=== PATIENT | male | born 1960 | race African-American/Black ===

== ENCOUNTER 2017-10-24 12:10 | Emergency (ER) | payer OTHER ==
[2017-10-24] MEDS ORDERED: CYCLOBENZAPRINE 10 MG TAB ONE (13:39)
[2017-10-24] MEDS ORDERED: HYDROCODONE/APAP 7.5/325 MG TAB ONE (13:40)
--- NOTE | 2017-10-24 14:37 | RAD REPORT ---
EXAM DESCRIPTION: CT - Thorax Wo Con - 10/24/2017 2:17 pm CLINICAL HISTORY: Chest pain status post fall several days ago. Right rib pain COMPARISON: 2013 TECHNIQUE: Computed axial tomography of the chest was obtained. Contrast was not requested. All CT scans are performed using dose optimization technique as appropriate and may include automated exposure control or mA/KV adjustment according to patient size. FINDINGS: The evaluation of mediastinum, nelson and vessels is limited secondary to lack of IV contras t administration. A pulmonary contusion is not seen. A mediastinal hematoma is not seen. A pleural effusion is not present. A pericardia leffusion is not noted A displaced rib fracture is not noted. 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
--- NOTE | 2017-10-24 14:55 | RAD REPORT ---
EXAM DESCRIPTION: CT - Abdomen Wo Contrast - 10/24/2017 2:17 pm CLINICAL HISTORY: Abdominal pain status post fall COMPARISON: 2014 TECHNIQUE: Computed axial tomography from the diaphragm to the iliac crest was obtained. Oral contra st was given. IV contrast was not requested. All CT scans are performed using dose optimization technique as appropriate and may include automated exposure control or mA/KV adjustment according to patient size. FINDINGS: The evaluation of solid organs and vessels is limited secondary to the lack of IV contrast administration. The liver, spleen, adrenals, pancreas and kidneys appear grossly normal. No ascites is seen. The visualized bowel caliber and wall thickness is normal IMPRESSION: No acute abnormality is displayed.
[2017-10-24] MEDS ORDERED: KETOROLAC 30 MG/ML INJ ONE ×2 (15:07)
--- NOTE | 2017-10-24 15:15 | EDPHYS ---
Physician Documentation [facility] Name: Porfirio Dumont Jr Age: 57 yrs Sex: Male : 1960 Arrival Date: 10/24/2017 Time: 12:13 Bed 14 Private MD: None, None ED Physician Madhu Valladares HPI: 10/24 13:22 This 57 yrs old Black Male presents to ER via Ambulatory with complaints of Breathing cp Difficulty, Rib Pain. 13:22 The patient or guardian reports chest pain that is located primarily in the lower right cp lateral anterior chest and lower right lateral posterior chest. 13:22 Onset: The symptoms/episode began/occurred 2 day(s) ago, after fall while in closet. cp 13:22 The pain does not radiate. Associated signs and symptoms: Pertinent positives: cp shortness of breath, Pertinent negatives: abdominal pain, cough, diaphoresis, headache, lower extremity pain, lower extremity swelling, near syncope, palpitations, syncope. Historical: - Allergies: 12:49 NKA; iw - PMHx: 12:49 COPD; CVA; iw - PSHx: 12:49 Hernia repair; left arm; iw - Immunization history:: Adult Immunizations not up to date. - Social history:: Smoking status: Patient uses tobacco products, 1 pack per week. - Ebola Screening: : Patient negative for fever greater than or equal to 101.5 degrees Fahrenheit, and additional compatible Ebola Virus Disease symptoms Patient denies exposure to infectious person Patient denies travel to an Ebola-affected area in the 21 days before illness onset No symptoms or risks identified at this time. ROS: 13:25 Constitutional: Negative for body aches, chills, fever, poor PO intake. cp 13:25 Eyes: Negative for injury, pain, redness, and discharge. cp 13:25 ENT: Negative for drainage from ear(s), ear pain, sore throat, difficulty swallowing, difficulty handling secretions. 13:25 Cardiovascular: Positive for right lower lateral rib pain, Negative for edema, palpitations. 13:25 Respiratory: Positive for cough, shortness of breath, Negative for wheezing. 13:25 Abdomen/GI: Negative for abdominal pain, nausea, vomiting, and diarrhea, constipation, black/tarry stool, rectal bleeding. 13:25 Back: Negative for pain at rest, pain with movement, radiated pain. 13:25 MS/extremity: Negative for injury or acute deformity, decreased range of motion, paresthesias. 13:25 Skin: Negative for cellulitis, rash. 13:25 Neuro: Negative for altered mental status, headache, syncope, near syncope, weakness. 13:25 All other systems are negative. Exam: 13:33 Constitutional: The patient appears in no acute distress, alert, awake, cp non-diaphoretic, non-toxic, well developed, well nourished, uncomfortable. 13:33 Head/Face: Normocephalic, atraumatic. cp 13:33 Eyes: Periorbital structures: appear normal, Pupils: equal, round, and reactive to light and accomodation, Extraocular movements: intact throughout, Conjunctiva: normal, no exudate, no injection, Sclera: no appreciated abnormality, Lids and lashes: appear normal, bilaterally. 13:33 ENT: External ear(s): are unremarkable, Nose: is normal, Posterior pharynx: is normal, airway is patent, no erythema, no exudate. 13:33 Neck: ROM/movement: is normal, is supple, without pain, no range of motions limitations, no nuchal rigidity. 13:33 Chest/axilla: Inspection: normal, Palpation: crepitus, is not appreciated, tenderness, that is moderate, of the lower right lateral anterior chest and lower right lateral posterior chest. 13:33 Cardiovascular: Rate: normal, Rhythm: regular, Pulses: Pulses are 2+ in right radial artery and left radial artery. Edema: is not appreciated, JVD: is not appreciated. 13:33 Respiratory: the patient does not display signs of respiratory distress, Respirations: normal, no use of accessory muscles, no retractions, labored breathing, is not present. 13:33 Abdomen/GI: Inspection: abdomen appears normal, Bowel sounds: active, all quadrants, Palpation: abdomen is soft and non-tender, in all quadrants, rebound tenderness, is not appreciated, voluntary guarding, is not appreciated, involuntary guarding, is not appreciated. 13:33 Back: vertebral tenderness, is not appreciated. 13:33 Musculoskeletal/extremity: Exam is negative for decreased range of motion, deformity, injury. 13:33 Skin: cellulitis, is not appreciated, no rash present. 13:33 Neuro: Orientation: to person, place \T\ time. Mentation: is normal, Cerebellar function: is grossly normal, Motor: moves all fours, strength is normal, Sensation: no obvious gross deficits. Vital Signs: 12:48 BP 129 / 82; Pulse 69; Resp 18; Temp 98.1(O); Pulse Ox 100% on R/A; Weight 68.04 kg; iw Height 5 ft. 7 in. (170.18 cm); Pain 10/10; 14:08 BP 127 / 76; Pulse 69; Resp 18; Pulse Ox 99% ; tl3 15:00 BP 120 / 82; Pulse 78; Resp 18; Pulse Ox 100% ; Pain 8/10; tl3 12:48 Body Mass Index 23.49 (68.04 kg, 170.18 cm) iw MDM: 13:12 Patient medically screened. cp 14:00 Differential diagnosis: Blunt Chest Trauma Chest Wall Contusion Chest Wall Injury cp Pleural Effusion Pneumomediastinum Pneumopericardium Pulmonary Contusion Rib Fracture. 15:12 Data reviewed: vital signs, nurses notes, radiologic studies, CT scan. cp 15:12 Counseling: I had a detailed discussion with the patient and/or guardian regarding: the cp historical points, exam findings, and any diagnostic results supporting the discharge/admit diagnosis, radiology results, the need for outpatient follow up, a family practitioner, to return to the emergency department if symptoms worsen or persist or if there are any questions or concerns that arise at home. 15:12 Response to treatment: the patient's symptoms have mildly improved after treatment, and cp as a result, I will discharge patient. 10/24 13:19 Order name: CT Chest Wo Con; Complete Time: 14:56 cp 10/24 13:49 Order name: Abdomen Wo Contrast; Complete Time: 14:56 EDMS 10/24 14:57 Interpretation: Report reviewed. cp Administered Medications: 13:37 Drug: Hydrocodone-Acetaminophen (7.5 mg-325 mg) 1 tabs Route: PO; tl3 15:00 Follow up: Response: Pain is unchanged, physician notified tl3 13:37 Drug: Flexeril 10 mg Route: PO; tl3 15:26 Follow up: Response: No adverse reaction tl3 15:11 Drug: TORadol 60 mg Route: IM; Site: right gluteus; mg2 15:25 Follow up: Response: Pain is decreased tl3 Disposition: 10/24/17 15:14 Discharged to Home. Impression: Other chest pain - Right Lower Lateral Ribs from Fall. - Condition is Stable. - Discharge Instructions: Rib Contusion, Nonspecific Chest Pain. - Prescriptions for Skelaxin 800 mg Oral Tablet - take 1 tablet by ORAL route every 8 hours As needed; 30 tablet. Ultracet 37.5- 325 mg Oral Tablet - take 1 tablet by ORAL route every 6 hours - for up to 5 days; do not exceed 8 tablets per day.; 15 tablet. Diclofenac Sodium 75 mg Oral Tablet, Delayed Release (E.C.) - take 1 tablet by ORAL route 2 times per day; 20 tablet. - Medication Reconciliation Form, Thank You Letter, Antibiotic Education, Prescription Opioid Use form. - Follow up: Private Physician; When: 1 - 2 days; Reason: Recheck today's complaints. - Problem is new. - Symptoms have improved. Addendum: 11/01/2017 20:43 Co-signature as Attending Physician, Madhu Valladares MD I agree with the assessment and k dr plan of care. Signatures: Dispatcher [employer] EDMS Madhu Valladares MD MD kdr Laurel Garcia RN RN iw Demarcus Watson PA PA cp Kristin Cardona RN RN tl3 Esa Pang RN RN mg2 Corrections: (The following items were deleted from the chart) 10/24 15:28 15:14 10/24/2017 15:14 Discharged to Home. Impression: Other chest pain - Right Lower tl3 Lateral Ribs from Fall. Condition is Stable. Forms are Medication Reconciliation Form, Thank You Letter, Antibiotic Education, Prescription Opioid Use. Follow up: Private Physician; When: 1 - 2 days; Reason: Recheck today's complaints. Problem is new. Symptoms have improved. cp
--- NOTE | 2017-10-24 15:15 | ER ---
Nurse's Notes [facility] Name: Porfirio Dumont Jr Age: 57 yrs Sex: Male : 1960 Arrival Date: 10/24/2017 Time: 12:13 Bed 14 Private MD: None, None Diagnosis: Other chest pain-Right Lower Lateral Ribs from Fall Presentation: 10/24 12:46 Presenting complaint: states: fell two days ago while in the closet, has right rib iw pain, and now has difficulty breathing. Transition of care: patient was not received from another setting of care. Onset of symptoms was October 22, 2017. Risk Assessment: Do you want to hurt yourself or someone else? Patient reports no desire to harm self or others. Initial Sepsis Screen: Does the patient meet any 2 criteria? No. Patient's initial sepsis screen is negative. Does the patient have a suspected source of infection? No. Patient's initial sepsis screen is negative. Care prior to arrival: None. 12:46 Method Of Arrival: Ambulatory iw 12:46 Acuity: SRINIVAS 3 iw Triage Assessment: 15:27 Respiratory: Reports pain with movement Onset: The symptoms/episode began/occurred two tl3 to three days, the patient has moderate shortness of breath. Historical: - Allergies: 12:49 NKA; iw - PMHx: 12:49 COPD; CVA; iw - PSHx: 12:49 Hernia repair; left arm; iw - Immunization history:: Adult Immunizations not up to date. - Social history:: Smoking status: Patient uses tobacco products, 1 pack per week. - Ebola Screening: : Patient negative for fever greater than or equal to 101.5 degrees Fahrenheit, and additional compatible Ebola Virus Disease symptoms Patient denies exposure to infectious person Patient denies travel to an Ebola-affected area in the 21 days before illness onset No symptoms or risks identified at this time. Screenin:08 Abuse screen: Denies threats or abuse. Nutritional screening: No deficits noted. tl3 Tuberculosis screening: No symptoms or risk factors identified. Fall Risk Fall in past 12 months (25 points). Assessment: 14:08 General: Appears in no apparent distress. uncomfortable, slender, well groomed, well tl3 developed, well nourished, Behavior is calm, cooperative, appropriate for age. Pain: Complains of pain in right lateral anterior chest. Neuro: Level of Consciousness is awake, alert, obeys commands, Oriented to person, place, time, situation, Appropriate for age. Cardiovascular: Reports rib pain. Cardiovascular: Denies chest pain, diaphoresis, nausea, palpitations, syncope, Rhythm is regular. Respiratory: Airway is patent Respiratory effort is even, unlabored, Respiratory pattern is regular, symmetrical. GI: No signs and/or symptoms were reported involving the gastrointestinal system. : No signs and/or symptoms were reported regarding the genitourinary system. EENT: No signs and/or symptoms were reported regarding the EENT system. Derm: No signs and/or symptoms reported regarding the dermatologic system. Musculoskeletal: Reports pain in ribs since fell in bathroom closet, not sure of what he hit . 15:00 Reassessment: No changes from previously documented assessment. Patient and/or family tl3 updated on plan of care and expected duration. Pain level reassessed. Patient is alert, oriented x 3, equal unlabored respirations, skin warm/dry/pink. pt reports that he is still n pain, provider notified. 15:27 Respiratory: Breath sounds are clear bilaterally. tl3 Vital Signs: 12:48 BP 129 / 82; Pulse 69; Resp 18; Temp 98.1(O); Pulse Ox 100% on R/A; Weight 68.04 kg; iw Height 5 ft. 7 in. (170.18 cm); Pain 10/10; 14:08 BP 127 / 76; Pulse 69; Resp 18; Pulse Ox 99% ; tl3 15:00 BP 120 / 82; Pulse 78; Resp 18; Pulse Ox 100% ; Pain 8/10; tl3 12:48 Body Mass Index 23.49 (68.04 kg, 170.18 cm) iw ED Course: 12:13 Patient arrived in ED. mr 12:13 None, None is Private Physician. mr 12:48 Triage completed. iw 12:50 Arm band placed on. iw 13:03 Kristin Cardona RN is Primary Nurse. tl3 13:06 Demarcus Watson PA is PHCP. cp 13:06 Madhu Valladares MD is Attending Physician. cp 14:08 Resting quietly. tl3 14:08 Patient has correct armband on for positive identification. Bed in low position. Call tl3 light in reach. Side rails up X 1. Pulse ox on. NIBP on. 14:08 No provider procedures requiring assistance completed. Patient did not have IV access tl3 during this emergency room visit. 14:17 CT Chest Wo Con In Process Unspecified. EDMS 14:18 Abdomen Wo Contrast In Process Unspecified. EDMS Administered Medications: 13:37 Drug: Hydrocodone-Acetaminophen (7.5 mg-325 mg) 1 tabs Route: PO; tl3 15:00 Follow up: Response: Pain is unchanged, physician notified tl3 13:37 Drug: Flexeril 10 mg Route: PO; tl3 15:26 Follow up: Response: No adverse reaction tl3 15:11 Drug: TORadol 60 mg Route: IM; Site: right gluteus; mg2 15:25 Follow up: Response: Pain is decreased tl3 Outcome: 15:00 Discharged to home ambulatory. tl3 15:00 Condition: stable 15:00 Discharge instructions given to patient, family, Instructed on discharge instructions, follow up and referral plans. medication usage, Demonstrated understanding of instructions, follow-up care, medications, Prescriptions given X 3. 15:14 Discharge ordered by . pili 15:28 Patient left the ED. tl3 Signatures: Dispatcher [employer] EDMegan Nelson mr Laurel Garcia, RN RN Demarcus Arias PA PA cp Lowrey, Tammy, RN RN tl3 Esa Pang RN RN mg2
[2017-10-24 15:32] VITALS: TEMP 98.1
[2017-10-24 15:35] VITALS: BP 120/82; O2SAT 100
== END 2017-10-24 15:28 | disposition home or self-care (01) ==
LOC: ER 12:10
DX: R07.89 Other chest pain (principal); W18.39XA Other fall on same level, initial encounter; Y93.89 Activity, other specified; Y92.9 Unspecified place or not applicable; Z72.0 Tobacco use
CPT/HCPCS: 71250; 74150; 96372; 99284

== ENCOUNTER 2022-02-23 18:18 | Emergency (ER) | payer OTHER ==
--- OUTSIDE RECORDS SUMMARY | 2022-02-23 18:22 | XMS REPORT | Continuity of Care Document ---
:1960 Author Organization [facility] t Address [address] [place] [address] Care Team Providers Name Role Phone NATALIE Attending Clinician Unavailable NATALIE Admitting Clinician Unavailable Payers Payer Name Policy Type Policy Number Effective Date Expiration Date S franklin [facility] [id number] 2015 [employer] O[employer] EXCEPT 00:00:00 [facility] [id number] 2021 COMMUNITY PLAN ID 00:00:00 (MEDICAID HMO) Problems This patient has no known problems. Allergies, Adverse Reactions, Alerts This patient has no known allergies or adverse reactions. Medications This patient has no known medications. Procedures This patient has no known procedures. Encounters Start End Encounter Admission Attending Care Care Encounter Source Date/Time Date/Time Type Type Clinicians Facility Department ID 2021-10-03 Outpatient [facility] [id number] 01:05:06 [id number] [facility] 2021-11-04 2021-11-04 Outpatient [facility] [address] 04:40:00 04:40:00 [place] [id number] 2021-08-09 2021-08-09 Outpatient [facility] [address] 10:00:00 10:00:00 HN [id number] [facility] 2021-08-09 2021-08-09 Outpatient [facility] [address] 10:00:00 10:00:00 HN [id number] [facility] 2021-08-09 2021-08-09 Outpatient [facility] [address] 10:00:00 10:00:00 HN [id number] [facility] 2021-07-10 2021-07-10 Outpatient [facility] [address] 11:42:00 11:42:00 HN [id number] [facility] Results This patient has no known results.
[2022-02-23] MEDS ORDERED: MORPHINE 2 MG/ML SYR ONE (19:39)
[2022-02-23] MEDS ORDERED: ONDANSETRON 4 MG/2 ML VIAL ONE (19:40)
[2022-02-23 19:55] LABS: Absolute Lymphocytes (CBC) 1.2 K/uL (0.7-4.9); Hematocrit 36.8 % (39.6-49.0); Lymphocytes % 22.3 % (15.3-44.8); MCV 88.7 fL (80-100); RBC Red Blood Cell Count 4.15 M/uL (4.33-5.43)
[2022-02-23 20:08] LABS: Urine Blood Trace-lysed (Negative); Urine Glucose Negative (Negative); Urine Protein Negative (Negative); Urine Specific Gravity >=1.030 (1.005-1.030)
[2022-02-23 20:09] LABS: Potassium 3.6 mmol/L (3.5-5.1)
--- NOTE | 2022-02-23 21:00 | RAD REPORT ---
EXAM DESCRIPTION: CT - Chest Abdomen Pelvis W Cont - 02/23/2022 8:35 pm CLINICAL HISTORY: Chest and abdomen pain. Fall with back pain COMPARISON: No comparisons TECHNIQUE: Approximately 100 mL nonionic IV contrast was administered to the patient. All CT scans are performed using dose optimization technique as appropriate and may include automated exposure control or mA/KV adjustment according to patient size. FINDINGS: The lungs are clear.Aberrant right subclavian artery, normal variation.No pleural or peric ardial effusion.No intrathoracic adenopathy. The liver, spleen, pancreas, adrenal glands and kidneys are within normal limits. No bowel obstruction, free air, free fluid or abscess. Normal appendix. No pathologic lymphadenopath y in the abdomen or pelvis. Hardware is present upper thoracic spine spanning an high-grade compression fracture. There is an add itional moderate high-grade compression fracture upper thoracic level, likely old. Right L2 transvers e process demonstrates acute fracture with mild angulation. No canal involvement. IMPRESSION: Right L2 transverse process fracture noted, acute in appearance. No canal involvement. Evidence of prior fracture/surgical stabilization upper thoracic spine.
--- NOTE | 2022-02-23 21:14 | EDPHYS ---
Physician Documentation [facility] Name: Porfirio Dumont Jr Age: 61 yrs Sex: Male : 1960 Arrival Date: 02/23/2022 Time: 18:21 Bed 11 Private MD: ED Physician Madhu Valladares HPI: 02/23 23:49 This 61 yrs old Black Male presents to ER via Ambulatory with complaints of Back Pain, kdr Chest Wall Pain. 23:49 Patient states that 4 days ago he fell in the bathtub hitting his back on the edge of kdr the tub. Since then he has had increasing pain in his mid to low back. Pain is especially worse with movement. Patient patient has not had anything like this in the past. The patient is nontoxic-appearing and does not require immediate intervention. Onset: The symptoms/episode began/occurred suddenly, 4 day(s) ago. Severity of symptoms: At their worst the symptoms were moderate in the emergency department the symptoms are unchanged. The patient has not experienced similar symptoms in the past. The patient has not recently seen a physician. Historical: - Allergies: 18:28 NKA; hb - PMHx: 18:28 COPD; CVA; hb - Immunization history:: Adult Immunizations up to date. - Social history:: Smoking status: Patient denies any tobacco usage or history of. ROS: 23:49 Constitutional: Negative for fever, chills, and weight loss, Eyes: Negative for injury, kdr pain, redness, and discharge, ENT: Negative for injury, pain, and discharge, Neck: Negative for injury, pain, and swelling, Cardiovascular: Negative for chest pain, palpitations, and edema, Respiratory: Negative for shortness of breath, cough, wheezing, and pleuritic chest pain, Abdomen/GI: Negative for abdominal pain, nausea, vomiting, diarrhea, and constipation, : Negative for injury, bleeding, discharge, and swelling, MS/Extremity: Negative for injury and deformity, Skin: Negative for injury, rash, and discoloration, Neuro: Negative for headache, weakness, numbness, tingling, and seizure activity. Psych: Negative for depression, anxiety, suicide ideation, homicidal ideation, and hallucinations, Allergy/Immunology: Negative for hives, rash, and allergies, Endocrine: Negative for neck swelling, polydipsia, polyuria, polyphagia, and marked weight changes, Hematologic/Lymphatic: Negative for swollen nodes, abnormal bleeding, and unusual bruising. 23:49 Back: Positive for injury or acute deformity, decreased range of motion, pain at rest, pain with movement, of the lumbar area and mid back area. Exam: 23:49 Constitutional: This is a well developed, well nourished patient who is awake, alert, kdr and in no acute distress. Head/Face: Normocephalic, atraumatic. Eyes: Pupils equal round and reactive to light, extra-ocular motions intact. Lids and lashes normal. Conjunctiva and sclera are non-icteric and not injected. Cornea within normal limits. Periorbital areas with no swelling, redness, or edema. Neck: Trachea midline, no thyromegaly or masses palpated, and no cervical lymphadenopathy. Supple, full range of motion without nuchal rigidity, or vertebral point tenderness. No Meningismus. Chest/axilla: Normal chest wall appearance and motion. Nontender with no deformity. No lesions are appreciated. Cardiovascular: Regular rate and rhythm with a normal S1 and S2. No gallops, murmurs, or rubs. Normal PMI, no JVD. No pulse deficits. Respiratory: Lungs have equal breath sounds bilaterally, clear to auscultation and percussion. No rales, rhonchi or wheezes noted. No increased work of breathing, no retractions or nasal flaring. Abdomen/GI: Soft, non-tender, with normal bowel sounds. No distension or tympany. No guarding or rebound. No evidence of tenderness throughout. Skin: Warm, dry with normal turgor. Normal color with no rashes, no lesions, and no evidence of cellulitis. MS/ Extremity: Pulses equal, no cyanosis. Neurovascular intact. Full, normal range of motion. Neuro: Awake and alert, GCS 15, oriented to person, place, time, and situation. Cranial nerves II-XII grossly intact. Motor strength 5/5 in all extremities. Sensory grossly intact. Cerebellar exam normal. Normal gait. Psych: Awake, alert, with orientation to person, place and time. Behavior, mood, and affect are within normal limits. 23:49 Back: pain, that is mild, that is moderate, of the lumbar area and mid back area, ROM is painful, normal spinal alignment noted, CVA tenderness, is absent, vertebral tenderness, is appreciated at T11, T12, L1 and L2. Vital Signs: 18:26 BP 139 / 91; Pulse 78; Resp 16; Temp 97.4; Pulse Ox 100% on R/A; Weight 63.5 kg; Height hb 5 ft. 7 in. (170.18 cm); Pain 10/10; 20:21 Pain 2/10; ke1 20:53 BP 138 / 84; Pulse 64; Resp 17; Pulse Ox 99% on R/A; Pain 0/10; ke1 21:24 BP 124 / 72; Pulse 68; Resp 15; Pulse Ox 99% on R/A; Pain 7/10; hb 18:26 Body Mass Index 21.93 (63.50 kg, 170.18 cm) hb MDM: 21:14 Patient medically screened. kdr 23:49 Data reviewed: vital signs, nurses notes, lab test result(s), radiologic studies. kdr Counseling: I had a detailed discussion with the patient and/or guardian regarding: the historical points, exam findings, and any diagnostic results supporting the discharge/admit diagnosis, lab results, radiology results, the need for outpatient follow up. 02/23 19:31 Order name: Basic Metabolic Panel; Complete Time: 21:12 kdr 02/23 19:31 Order name: CBC with Diff; Complete Time: 21:12 kdr 02/23 19:31 Order name: CT Chest, Abdomen, Pelvis - W/Contrast; Complete Time: 21:12 kdr 02/23 20:08 Order name: Urine Dipstick-Ancillary; Complete Time: 21:12 EDVA 02/23 19:31 Order name: Labs collected and sent; Complete Time: 19:51 kdr 02/23 19:31 Order name: Urine Dipstick-Ancillary (obtain specimen); Complete Time: 20:07 kdr Administered Medications: 20:02 Drug: morphine 2 mg Route: IVP; Infused Over: 4 mins; Site: right forearm; ke1 20:21 Follow up: Pain 2/10 Adult; Response: Pain is decreased ke1 20:02 Drug: Zofran (Ondansetron) 4 mg Route: IVP; Site: right forearm; ke1 20:21 Follow up: No nausea post morphine iv ke1 21:24 Drug: [place] (HYDROcodone-acetaminophen) (7.5 mg-325 mg) 1 tabs Route: PO; hb Disposition Summary: 02/23/22 21:14 Discharge Ordered Location: Home kdr Problem: new kdr Symptoms: have improved kdr Condition: Stable kdr Diagnosis - L2 transverse process fracture kdr - Fall from standing kdr Followup: kdr - With: Private Physician - When: 2 - 3 days - Reason: If symptoms return, Further diagnostic work-up, Recheck today's complaints, Continuance of care, Re-evaluation by your physician Discharge Instructions: - Discharge Summary Sheet kdr - Acute Back Pain, Adult kdr - Transverse Process Fracture kdr Forms: - Medication Reconciliation Form kdr - Thank You Letter kdr - Prescription Opioid Use kdr Prescriptions: - Cyclobenzaprine 5 mg Oral Tablet - take 1 tablet by ORAL route 3 times per day As needed; 15 tablet; Refills: 0, kdr Product Selection Permitted - Tylenol-Codeine #3 300 mg-30 mg Oral - take 1 tablet by ORAL route every 4-6 hours As needed; 16 tablet; Refills: 0, kdr Product Selection Permitted Signatures: Dispatcher [employer] Madhu Smith MD MD kdr Pricilla Ren, RN RN Melanie Shen RN RN ke1
--- NOTE | 2022-02-23 21:14 | ER ---
Nurse's Notes [facility] Name: Porfirio Dumont Jr Age: 61 yrs Sex: Male : 1960 Arrival Date: 02/23/2022 Time: 18:21 Bed 11 Private MD: Diagnosis: L2 transverse process fracture;Fall from standing Presentation: 02/23 18:26 Chief complaint: Slipped in bathtub 4 days ago, hit right chest wall on side of tub, hb c/o right chest wall pain 10/10 that radiates to left side. Coronavirus screen: At this time, the client does not indicate any symptoms associated with coronavirus-19. Ebola Screen: No symptoms or risks identified at this time. Initial Sepsis Screen: Does the patient meet any 2 criteria? No. Patient's initial sepsis screen is negative. Does the patient have a suspected source of infection? No. Patient's initial sepsis screen is negative. Risk Assessment: Do you want to hurt yourself or someone else? Patient reports no desire to harm self or others. Onset of symptoms was February 19, 2022. 18:26 Method Of Arrival: Ambulatory hb 18:26 Acuity: SRINIVAS 4 hb Triage Assessment: 18:27 General: Appears in no apparent distress. uncomfortable, Behavior is calm, cooperative. hb Neuro: Level of Consciousness is awake, alert, obeys commands, Oriented to person, place, time, situation. Cardiovascular: Patient's skin is warm and dry. Respiratory: Respiratory effort is even, unlabored, Respiratory pattern is regular, symmetrical. Historical: - Allergies: 18:28 NKA; hb - PMHx: 18:28 COPD; CVA; hb - Immunization history:: Adult Immunizations up to date. - Social history:: Smoking status: Patient denies any tobacco usage or history of. Screenin:30 Abuse screen: Denies threats or abuse. Denies injuries from another. Nutritional hb screening: No deficits noted. Tuberculosis screening: No symptoms or risk factors identified. Fall Risk None identified. Assessment: 19:29 General: See triage assessment . hb 20:01 Pain: Complains of pain in back Pain currently is 10 out of 10 on a pain scale. at ke1 worst was 10 out of 10 on a pain scale. level that patient reports is acceptable is 5 out of 10 on a pain scale. Quality of pain is described as sharp, Alleviated by rest. 20:15 Reassessment: Patient states feeling better. Patient states symptoms have improved. ke1 20:54 Reassessment: Patient denies pain at this time. Patient states feeling better. Patient ke1 states symptoms have improved. 21:24 Reassessment: Patient appears in no apparent distress at this time. Patient and/or hb family updated on plan of care and expected duration. Pain level reassessed. Patient is alert, oriented x 3, equal unlabored respirations, skin warm/dry/pink. Vital Signs: 18:26 BP 139 / 91; Pulse 78; Resp 16; Temp 97.4; Pulse Ox 100% on R/A; Weight 63.5 kg; Height hb 5 ft. 7 in. (170.18 cm); Pain 10/10; 20:21 Pain 2/10; ke1 20:53 BP 138 / 84; Pulse 64; Resp 17; Pulse Ox 99% on R/A; Pain 0/10; ke1 21:24 BP 124 / 72; Pulse 68; Resp 15; Pulse Ox 99% on R/A; Pain 7/10; hb 18:26 Body Mass Index 21.93 (63.50 kg, 170.18 cm) hb ED Course: 18:21 Patient arrived in ED. mr 18:28 Triage completed. hb 18:28 Arm band placed on. hb 18:58 Madhu Valladares MD is Attending Physician. kdr 19:14 Melanie Shen, JOES ALFREDO is Primary Nurse. ke1 19:30 Patient has correct armband on for positive identification. hb 19:51 Inserted saline lock: 20 gauge in right forearm, using aseptic technique. ke1 19:51 Basic Metabolic Panel Sent. ke1 19:52 CBC with Diff Sent. ke1 20:37 CT Chest, Abdomen, Pelvis - W/Contrast In Process Unspecified. EDMS 21:24 No provider procedures requiring assistance completed. IV discontinued, intact, hb bleeding controlled, No redness/swelling at site. Administered Medications: 20:02 Drug: morphine 2 mg Route: IVP; Infused Over: 4 mins; Site: right forearm; ke1 20:21 Follow up: Pain 2/10 Adult; Response: Pain is decreased ke1 20:02 Drug: Zofran (Ondansetron) 4 mg Route: IVP; Site: right forearm; ke1 20:21 Follow up: No nausea post morphine iv ke1 21:24 Drug: [place] (HYDROcodone-acetaminophen) (7.5 mg-325 mg) 1 tabs Route: PO; Medication: 20:29 VIS not applicable for this client. Intake: Outcome: 21:14 Discharge ordered by . kdr 21:24 Discharged to home with significant other. hb 21:24 Condition: stable 21:24 Discharge instructions given to patient, significant other, Instructed on discharge instructions, follow up and referral plans. medication usage, Demonstrated understanding of instructions, follow-up care, medications, Prescriptions given X 2. 21:27 Patient left the ED. Signatures: Dispatcher [employer] EDMS Madhu Valladares MD MD [facility] Heather, JOSE ALFREDO RN Melanie Shen RN RN ke1
[2022-02-23] MEDS ORDERED: HYDROCODONE/APAP 7.5/325 MG TAB ONE (21:19)
[2022-02-23 22:34] VITALS: TEMP 97.4
[2022-02-23 22:56] VITALS: O2SAT 99
[2022-02-23 22:57] VITALS: BP 124/72
== END 2022-02-23 21:27 | disposition home or self-care (01) ==
LOC: ER 18:18
DX: S32.029A Unspecified fracture of second lumbar vertebra, initial encounter for closed fracture (principal); W18.30XA Fall on same level, unspecified, initial encounter
CPT/HCPCS: 85025; 80048; 36415; 81003; 71260; 74177; 96375; 96374; 99284; Q9967; J2270; J2405

== ENCOUNTER → 2023-05-13 | Emergency (ER) | payer OTHER ==
[~2023-05-13] MED LIST: POTASSIUM CL SA 10 MEQ TAB PO ONE
--- OUTSIDE RECORDS SUMMARY | 2023-05-13 15:42 | XMS REPORT | Continuity of Care Document ---
Author Name Unknown Address [address] [facility] [address] [place] [address] [facility] thconnect Address [address] [facility] [address] [place] [address] Care Team Providers Care Web Application Tester Name Role Phone PCP, PATIENT DOES NOT HAVE A Primary Care Physic fran Unavailable KD FITZPATRICK Attending Clinician Unavailable Peter Lind MD Attending Clinician PETER LIND Attending Clinician Unavail able PETER LIND Attending Clinician Unavail able Doctor Unassigned, [place] Attending Clinician U navailable Neurology Attending Clinician Unavailable STEPHEN KINSEY Attending Clinician Unavailable Stephen Shell Attending Clinician NATALIE Attending Clinician Unavailable STEPHEN KINSEY Admitting Clinician Unavailable NATALIE Admitting Clinician Unavailable Payers Payer Name Policy Type Policy Number Effective Date Expirati on Date Source [facility] OON EXCEPT [facility] [id number] 2015 00:00:00 [facility] (MEDICAID HMO) [id number] 2021 00:00:00 Allergies, Adverse Reactions, Alerts Allergy Name Allergy Type Status Severity Reaction(s) Onset Date Inactive Date Treating Clinician Comments Source NO KNOWN ALLERGIE S Drug Class Active [facility] Social History Social Habit Start Date Stop Date Quantity Comments Source [facility] of tobacco use Pipe Smoker [facility] Tobacco use and exposure 2022-09-23 00:00:00 2022-09-23 00:00:00 User of smokeless tobacco [facility] Tobacco Comment 2022-09-23 00:00:00 2022-09-23 00:00:00 Patient vapes [facility] History of Social function 2022-09-23 00:00:00 2022-09-23 00:00:00 [facility] Exposure to SARS-CoV-2 (event) 2022-08-23 00:00:00 2022-09-02 09:07:00 Not sure [facility] Sex Assigned At 1960 00:00:00 1960 00:00:00 [facility] Smoking Status Start Date Stop Date Source Tobacco smoking consumption unknown [facility] Ex-smoker 2022-09-23 00:00:00 2022-09-23 00:00:00 [facility] Medications Ordered Medication Name Filled Medication Name Start Date Stop Date Current Medication? Ordering Clinician Indication Dosage Frequency Signature (SIG) Comments Components Source iopamidol (ISOVUE 370-500 mL) injection 100 mL 09-02 15:16: 00 09-02 15:17 :00 No [id number] 100mL 100 mL, Intravenou s, ONCE, 1 dose, On Thu09/02/22 at 1030, Routine [facility] traMADOL 50 mg tablet 10-14 00:00: 00 Yes [id number] 50mg Take 1 tablet by mouth every 8 (eight) hours as needed for Pain (scale 4-6). [facility] methocarbam ol (ROBAXIN) 500 mg tablet 10-14 00:00: 00 Yes [id number] 500mg Take 1 tablet by mouth 4 (four) times daily as needed for Pain (scale 4-6). [facility] traMADOL 50 mg tablet 10-14 00:00: 00 Yes [id number] 50mg Take 1 tablet by mouth every 8 (eight) hours as needed for Pain (scale 4-6). [facility] methocarbam ol (ROBAXIN) 500 mg tablet 10-14 00:00: 00 Yes [id number] 500mg Take 1 tablet by mouth 4 (four) times daily as needed for Pain (scale 4-6). [facility] traMADOL 50 mg tablet 10-14 00:00: 00 Yes [id number] 50mg Take 1 tablet by mouth every 8 (eight) hours as needed for Pain (scale 4-6). [facility] methocarbam ol (ROBAXIN) 500 mg tablet 10-14 00:00: 00 Yes [id number] 500mg Take 1 tablet by mouth 4 (four) times daily as needed for Pain (scale 4-6). [facility] traMADOL 50 mg tablet 10-14 00:00: 00 Yes [id number] 50mg Take 1 tablet by mouth every 8 (eight) hours as needed for Pain (scale 4-6). [facility] methocarbam ol (ROBAXIN) 500 mg tablet 10-14 00:00: 00 Yes [id number] 500mg Take 1 tablet by mouth 4 (four) times daily as needed for Pain (scale 4-6). [facility] traMADOL 50 mg tablet 10-14 00:00: 00 Yes [id number] 50mg Take 1 tablet by mouth every 8 (eight) hours as needed for Pain (scale 4-6). [facility] methocarbam ol (ROBAXIN) 500 mg tablet 10-14 00:00: 00 Yes [id number] 500mg Take 1 tablet by mouth 4 (four) times daily as needed for Pain (scale 4-6). [facility] traMADOL 50 mg tablet 10-14 00:00: 00 Yes [id number] 50mg Take 1 tablet by mouth every 8 (eight) hours as needed for Pain (scale 4-6). [facility] methocarbam ol (ROBAXIN) 500 mg tablet 10-14 00:00: 00 Yes [id number] 500mg Take 1 tablet by mouth 4 (four) times daily as needed for Pain (scale 4-6). [facility] traMADOL 50 mg tablet 10-14 00:00: 00 Yes [id number] 50mg Take 1 tablet by mouth every 8 (eight) hours as needed for Pain (scale 4-6). [facility] methocarbam ol (ROBAXIN) 500 mg tablet 10-14 00:00: 00 Yes [id number] 500mg Take 1 tablet by mouth 4 (four) times daily as needed for Pain (scale 4-6). [facility] traMADOL 50 mg tablet 10-14 00:00: 00 Yes [id number] 50mg Take 1 tablet by mouth every 8 (eight) hours as needed for Pain (scale 4-6). [facility] methocarbam ol (ROBAXIN) 500 mg tablet 10-14 00:00: 00 Yes [id number] 500mg Take 1 tablet by mouth 4 (four) times daily as needed for Pain (scale 4-6). [facility] traMADOL 50 mg tablet 10-14 00:00: 00 Yes [id number] 50mg Take 1 tablet by mouth every 8 (eight) hours as needed for Pain (scale 4-6). [facility] methocarbam ol (ROBAXIN) 500 mg tablet 10-14 00:00: 00 Yes [id number] 500mg Take 1 tablet by mouth 4 (four) times daily as needed for Pain (scale 4-6). [facility] traMADOL 50 mg tablet 10-14 00:00: 00 Yes [id number] 50mg Take 1 tablet by mouth every 8 (eight) hours as needed for Pain (scale 4-6). [facility] methocarbam ol (ROBAXIN) 500 mg tablet 10-14 00:00: 00 Yes [id number] 500mg Take 1 tablet by mouth 4 (four) times daily as needed for Pain (scale 4-6). [facility] traMADOL 50 mg tablet 10-14 00:00: 00 Yes [id number] 50mg Take 1 tablet by mouth every 8 (eight) hours as needed for Pain (scale 4-6). [facility] methocarbam ol (ROBAXIN) 500 mg tablet 10-14 00:00: 00 Yes [id number] 500mg Take 1 tablet by mouth 4 (four) times daily as needed for Pain (scale 4-6). [facility] traMADOL (ULTRAM) 50 mg tablet 08-23 00:00: 00 Yes [id number] 50mg Take 1 tablet by mouth every 6 (six) hours as needed for Pain (scale 7-10). [facility] traMADOL (ULTRAM) 50 mg tablet 08-23 00:00: 00 Yes [id number] 50mg Take 1 tablet by mouth every 6 (six) hours as needed for Pain (scale 7-10). [facility] traMADOL (ULTRAM) 50 mg tablet 08-23 00:00: 00 Yes [id number] 50mg Take 1 tablet by mouth every 6 (six) hours as needed for Pain (scale 7-10). [facility] traMADOL (ULTRAM) 50 mg tablet 08-23 00:00: 00 Yes [id number] 50mg Take 1 tablet by mouth every 6 (six) hours as needed for Pain (scale 7-10). [facility] traMADOL (ULTRAM) 50 mg tablet 08-23 00:00: 00 Yes [id number] 50mg Take 1 tablet by mouth every 6 (six) hours as needed for Pain (scale 7-10). [facility] traMADOL (ULTRAM) 50 mg tablet 08-23 00:00: 00 Yes [id number] 50mg Take 1 tablet by mouth every 6 (six) hours as needed for Pain (scale 7-10). [facility] traMADOL (ULTRAM) 50 mg tablet 08-23 00:00: 00 Yes [id number] 50mg Take 1 tablet by mouth every 6 (six) hours as needed for Pain (scale 7-10). [facility] traMADOL (ULTRAM) 50 mg tablet 08-23 00:00: 00 Yes [id number] 50mg Take 1 tablet by mouth every 6 (six) hours as needed for Pain (scale 7-10). [facility] traMADOL (ULTRAM) 50 mg tablet 08-23 00:00: 00 Yes [id number] 50mg Take 1 tablet by mouth every 6 (six) hours as needed for Pain (scale 7-10). [facility] traMADOL (ULTRAM) 50 mg tablet 08-23 00:00: 00 Yes [id number] 50mg Take 1 tablet by mouth every 6 (six) hours as needed for Pain (scale 7-10). [facility] traMADOL (ULTRAM) 50 mg tablet 08-23 00:00: 00 Yes [id number] 50mg Take 1 tablet by mouth every 6 (six) hours as needed for Pain (scale 7-10). [facility] Vital Signs Vital Name Observation Time Observation Value Comments S ource Systolic blood pressure 2023-03-31 16:54:00 123 mm[Hg] [facility] Diastolic blood pressure 2023-03-31 16:54:00 72 mm[Hg] [facility] Heart rate 2023-03-31 16:54:00 71 /min [facility] Respiratory rate 2023-03-31 16:54:00 18 /min [facility] Body height 2023-03-31 16:54:00 170.2 cm [facility] Body weight 2023-03-31 16:54:00 62.596 kg [facility] BMI 2023-03-31 16:54:00 21.61 kg/m2 [facility] Oxygen saturation in Arterial blood by Pulse oximetry 2023-03-31 16:54:00 99 /min [facility] Systolic blood pressure 2022-09-23 14:49:00 118 mm[Hg] [facility] Diastolic blood pressure 2022-09-23 14:49:00 75 mm[Hg] [facility] Heart rate 2022-09-23 14:49:00 68 /min [facility] Respiratory rate 2022-09-23 14:49:00 20 /min [facility] Body height 2022-09-23 14:49:00 170.2 cm [facility] Body weight 2022-09-23 14:49:00 62.778 kg [facility] BMI 2022-09-23 14:49:00 21.68 kg/m2 [facility] Oxygen saturation in Arterial blood by Pulse oximetry 2022-09-23 14:49:00 100 /min [facility] Systolic blood pressure 2022-08-26 14:50:00 143 mm[Hg] [facility] Diastolic blood pressure 2022-08-26 14:50:00 75 mm[Hg] [facility] Heart rate 2022-08-26 14:50:00 78 /min [facility] Body height 2022-08-26 14:50:00 170.2 cm [facility] Body weight 2022-08-26 14:50:00 59.149 kg [facility] BMI 2022-08-26 14:50:00 20.42 kg/m2 [facility] Systolic blood pressure 2022-07-29 18:39:00 149 mm[Hg] [facility] Diastolic blood pressure 2022-07-29 18:39:00 96 mm[Hg] [facility] Heart rate 2022-07-29 18:39:00 75 /min [facility] Respiratory rate 2022-07-29 18:39:00 16 /min [facility] Oxygen saturation in Arterial blood by Pulse oximetry 2022-07-29 18:39:00 98 /min [facility] Body temperature 2022-07-29 16:44:00 36.28 Evelyn [facility] Body height 2022-07-29 16:44:00 170.2 cm [facility] Body weight 2022-07-29 16:44:00 58.968 kg [facility] BMI 2022-07-29 16:44:00 20.36 kg/m2 [facility] Procedures Procedure Date / Time Performed Performing Clinician Source CT ANGIOGRAM NECK 2022-09-02 15:27:40 Peter Lind [facility] CT ANGIOGRAM HEAD 2022-09-02 15:26:24 Peter Lind [facility] NOTICE OF PRIVACY PRACTICES 2022-09-02 14:05:30 Doctor Unassigned, [place] [facility] CONSENT/REFUSAL FOR DIAGNOSIS AND TREATMENT 2022-09-02 14:05:01 Doctor Unassigned, [place] [facility] ASSIGNMENT OF BENEFITS 2022-09-02 14:04:41 Docto r Unassigned, [place] [facility] ASSIGNMENT OF BENEFITS 2022-08-26 14:33:17 Docto r Unassigned, [place] [facility] CT HEAD WO CONTRAST 2022-07-29 17:29:00 Stephen Kinsey [facility] TROPONIN I 2022-07-29 17:13:00 Stephen Kinsey [facility] COMP. METABOLIC PANEL (12512) 2022-07-29 17:13:00 Stephen Kinsey [facility] CBC WITH DIFF 2022-07-29 17:13:00 Stephen Kinsey [facility] PROTHROMBIN TIME / INR 2022-07-29 17:13:00 Deysi Kinsey [facility] POCT GLUCOSE (AUTOMATED) 2022-07-29 16:44:00 Doctor Unassigned, [place] [facility] NOTICE OF PRIVACY PRACTICES 2022-07-29 16:39:09 Doctor Unassigned, [place] [facility] CONSENT/REFUSAL FOR DIAGNOSIS AND TREATMENT 2022-07-29 16:38:35 Doctor Unassigned, [place] [facility] Encounters Start Date/Time End Date/Time Encounter Type Admission Type Attending Clinicians Care Facility Care Department Encounter ID Source 2021-10-03 01:05:06 Outpatient [facility] [id number] [facility] 2023-03-31 11:30:00 2023-03-31 11:30:00 [facility] 1.2.840.114 350.1.13.10 4.2.7.2.686 [id number] [facility] 2023-03-31 11:30:00 2023-03-31 11:11:13 Outpatient R KD FITZPATRICK [facility] [id number] [facility] 2023-03-26 11:00:00 2023-03-26 11:00:00 [id number] 2022-09-23 10:00:00 2022-09-23 10:18:02 [facility]LIE[facility] 1..840.114 350.1.13.10 4.2.7.2.686 [id number] [facility] 2022-09-23 10:00:00 2022-09-23 10:18:02 Outpatient R KD FITZPATRICK [facility] [id number] [facility] 2022-09-02 09:11:03 2022-09-02 23:59:00 Hospital Encounter Peter Lind [facility] 1.2.840.114 350.1.13.10 4.2.7.2.686 [id number] [facility] 2022-09-02 09:08:03 2022-09-02 09:10:00 Outpatient R SUKHPETER CAMPUZANO SUKHPETER Mckeon [facility] [id number] [facility] 2022-09-02 09:08:03 2022-09-02 09:10:00 Hospital Encounter Peter Lind [facility] 1.2.840.114 350.1.13.10 4.2.7.2.686 [id number] [facility] 2022-08-26 10:00:00 2022-08-26 10:27:56 Outpatient PETER HDEZ HOWARD [facility] [id number] [facility] 2022-08-26 10:00:00 2022-08-26 10:27:56 [facility] 1.2.840.114 350.1.13.10 4.2.7.2.686 [id number] [facility] 2022-08-26 00:00:00 2022-08-26 00:00:00 Orders Only Doctor Unassigned, [place] [facility] 1.2.840.114 350.1.13.10 4.2.7.2.686 [id number] [facility] 2022-07-30 00:00:00 2022-07-30 00:00:00 Letter (Out) Neurology [facility] 1.2.840.114 350.1.13.10 4.2.7.2.686 [id number] [facility] 2022-07-29 11:42:00 2022-07-29 13:42:00 Emergency X STEPHEN KINSEY [facility] ERT [id number] [facility] 2022-07-29 11:42:00 2022-07-29 13:42:00 Emergency Stephen Kinsey [facility] 1.2.840.114 350.1.13.10 4.2.7.2.686 [id number] [facility] 2021-11-04 04:40:00 2021-11-04 04:40:00 Outpatient FERGUSONJARRELL CONNELL [id number] [facility] 2021-08-09 10:00:00 2021-08-09 10:00:00 Outpatient FERGUSON_JO HN [facility] [id number] [place] [facility] 2021-08-09 10:00:00 2021-08-09 10:00:00 Outpatient FERGUSON_JO HN [facility] [id number] [place] [facility] 2021-08-09 10:00:00 2021-08-09 10:00:00 Outpatient FERGUSON_JO HN [facility] [id number] [place] [facility] 2021-07-10 11:42:00 2021-07-10 11:42:00 Outpatient FERGUSON_JO HN [id number] Results Test Description Test Time Test Comments Results Result Co mments Source [facility] [id number] 18:04:07* Test Item Value Reference Range Interpretation Comme nts TROPONIN I (test code = 1910409039) 0.024 ng/mL <=0.034 ANNA (test code = ANNA) Reference (Normal) Range (defined by the 99th percentile reference limit): <= 0.034 ng/mL Note: Cardiac troponin begins to rise 3-4 hours after the onset of ischemia. Repeat in 4-6 hours if the sample was drawn within 3-4 hours of the onset of the symptom and found normal. Diagnosis of myocardial injury is made with acute changes in cTn concentrations with at least one serial sample above the 99th percentile upper reference limit (URL), taken together with the patient's clinical presentation. Biotin has been reported to cause a negative bias, interpret results relative to patient's use of biotin. Lab Interpretation (test code = 37831-1) Normal [facility]. METABOLIC PANEL (85988)2022-07-29 17:53:06* Test Item Value Reference Range Interpretation Comme nts NA (test code = 3218669243) 131 mmol/L 135-145 L K (test code = 5360799143) 3.5 mmol/L 3.5-5.0 CL (test code = 3994855301) 94 mmol/L 98-108 L CO2 TOTAL (test code = 4208098746) 26 mmol/L 23-31 AGAP (test code = 7066375913) 11 2-16 BUN (test code = 5196264784) 11 mg/dL 7-23 GLUCOSE (test code = 4668479156) 90 mg/dL 70-110 CREATININE (test code = 2165304255) 0.66 mg/dL 0.60-1.25 TOTAL BILI (test code = 2723450394) 0.6 mg/dL 0.1-1.1 CALCIUM (test code = 9261579785) 8.9 mg/dL 8.6-10.6 T PROTEIN (test code = 2221584954) 7.8 g/dL 6.3-8.2 ALBUMIN (test code = 7356898925) 4.6 g/dL 3.5-5.0 ALK PHOS (test code = 1916366181) 58 U/L 34-122 ALTv (test code = 1742-6) 15 U/L 5-50 AST(SGOT) (test code = 7699560202) 25 U/L 13-40 eGFR (test code = 8809054233) 123.5 mL/min/1.73m2 ANNA (test code = ANNA) Association of Glomerular Filtration Rate (GFR) and Staging of Kidney Disease* + --+ --+ ------+| GFR (mL/min/1.73 m2) ?| With Kidney Damage ?| ?Without Kidney Damage+ --------+ --------+ +| ?>90 ?| ?Stage one ?| ? Normal ?+ ---+ ---+ -------+| ?60-89 ?| ?Stage two ?| ? Decreased GFR ? + --+ --+ ------+| ?30-59 ?| ?Stage three ?| ? Stage three ? + --+ --+ ------+| ?15-29 ?| ?Stage four ? | ? Stage four ?+ ---+ ---+ -------+| ?<15 (or dialysis) ? ?| ?Stage five ? | ? Stage five ?+ ---+ ---+ -------+ *Each stage assumes the associated GFR level has been in effect for at least three months. ?Stages 1 to 5, with or without kidney disease, indicate chronic kidney disease. Notes: Determination of stages one and two (with eGFR >59mL/min/1.73 m2) requires estimation of kidney damage for at least three months as defined by structural or functional abnormalities of the kidney, manifested by either:Pathological abnormalities or Markers of kidney damage (including abnormalities in the composition of the blood or urine or abnormalities in imaging tests). Lab Interpretation (test code = 84571-6) [facility] [id number] 17:41:42* Test Item Value Reference Range Interpretation Comme [facility] PROTIME PATIENT (test code = 5964-2) 12.3 See_Comment [Automated [employer]] The system which generated this result transmitted reference range: 12.0 - 14.7 Seconds. The reference range was not used to interpret this result as normal/abnormal. INR (test code = 6301-6) 0.9 Normal INR <1.1; Warfarin Therapeutic range 2.0 to 3.0 or 2.5 to 3.5, depending upon the indications. Lab Interpretation (test code = 42706-5) Normal [facility]2022-07-29 16:52:01* Test Item Value Reference Range Interpretation Comme [facility] POCT GLU (test code = 6435833870) 129 mg/dL 70-110 H Lab Interpretation (test cod e = 66071-8) Abnormal [facility]"
[2023-05-13 16:48] LABS: Absolute Lymphocytes (CBC) 0.9 K/uL (0.7-4.9); Hematocrit 35.3 % (39.6-49.0); Lymphocytes % 20.7 % (15.3-44.8); MCV 87.5 fL (80-100); MPV 6.1 fL (7.6-11.3); Platelets 302 thou/uL (152-406); RBC Red Blood Cell Count 4.04 M/uL (4.33-5.43)
--- NOTE | 2023-05-13 16:51 | RAD REPORT ---
EXAM DESCRIPTION: RAD - Chest Single View - 05/13/2023 4:44 pm CLINICAL HISTORY: Chest pain;Cough Chest pain. COMPARISON: Chest Pa And Lat (2 Views) dated 08/10/2022; Chest Pa And Lat (2 Views) dated 06/26/2017; C HEST SINGLE VIEW dated 04/08/2014; CHEST PA AND LAT 2 VIEW dated 04/04/2013 FINDINGS: Portable technique limits examination quality. The lungs are grossly clear. The heart is normal in size. No displaced fractures.Thoracic spine hardw are. IMPRESSION: No acute intrathoracic process suspected.
[2023-05-13 17:13] LABS: Magnesium 2.1 mg/dL (1.6-2.4); Potassium 3.4 mEq/L (3.5-5.1); Troponin High Sensitivity 4.3 pg/mL (<58.9)
--- NOTE | 2023-05-13 17:25 | EDPHYS ---
Physician Documentation [facility] Name: Porfirio Dumont Jr Age: 62 yrs Sex: Male : 1960 Arrival Date: 05/13/2023 Time: 15:39 Bed 12 Private MD: ED Physician Dmitriy Rivers HPI: 05/13 18:17 This 62 yrs old Black Male presents to ER via Ambulatory with complaints of Flu kb Symptoms, Breathing Difficulty. 18:17 Pt is a 62 year old male who presents with cough, congestion, shortness of breath, and kb malaise for one week. States he was diagnosed with influenza A at [facility] last week and took all of the medication that was prescribed, but he hasn't gotten better. Followed up with PCP today and was told to come to the ER for evaluation to make sure he didn't develop a pneumonia. Historical: - Allergies: 15:47 NKA; ap3 - PMHx: 15:47 COPD; CVA; ap3 - Immunization history:: Client reports having NOT received the Covid vaccine. Flu vaccine is not up to date. - Social history:: Smoking status: Patient denies any tobacco usage or history of. ROS: 18:17 Abdomen/GI: Negative for abdominal pain, nausea, vomiting, diarrhea, and constipation, kb 18:17 Constitutional: Positive for malaise, 18:17 ENT: Positive for rhinorrhea, sinus congestion, 18:17 Respiratory: Positive for cough, shortness of breath, 18:17 All other systems are negative, Exam: 18:11 Constitutional: This is a well developed, well nourished patient who is awake, alert, kb and in no acute distress. Head/Face: Normocephalic, atraumatic. ENT: Moist Mucous membranes Cardiovascular: Regular rate Respiratory: Respirations even and unlabored. No increased work of breathing. Talking in full sentences Abdomen/GI: Soft, non-tender. No distention Skin: Warm, dry with normal turgor. Normal color. MS/ Extremity: Pulses equal, no cyanosis. Neurovascular intact. Full, normal range of motion. Neuro: Awake and alert, GCS 15, oriented to person, place, time, and situation. Moves all extremities. Normal gait. Vital Signs: 15:45 BP 129 / 80; Pulse 65; Resp 17; Temp 98.1; Pulse Ox 100% ; Weight 63.5 kg; Height 5 ft. ap3 7 in. ; Pain 9/10; 16:45 BP 124 / 79; Pulse 72; Resp 16; Pulse Ox 98% on R/A; tl4 17:43 BP 133 / 80; Pulse 75; Resp 14; Pulse Ox 98% on R/A; tl4 15:45 Body Mass Index 21.93 (63.50 kg, 170.18 cm) ap3 15:45 Pain Scale: Adult ap3 [place] Coma Score: 17:43 Eye Response: spontaneous(4). Motor Response: obeys commands(6). Verbal Response: tl4 oriented(5). Total: 15. MDM: 15:46 Patient medically screened. kb 18:19 Differential diagnosis: viral Infection, URI, pnueumonia, flu. Data reviewed: vital kb signs, nurses notes. I considered the following discharge prescriptions or medication management in the emergency department I discussed and recommended Over The Counter medications, Antibiotics: At this time antibiotics are not recommended. Historians other than the Patient: Spouse/Significant Other: . Counseling: I had a detailed discussion with the patient and/or guardian regarding the historical points, exam findings, and any diagnostic results supporting the discharge/admit diagnosis, lab results, radiology results, the need for outpatient follow up, a family practitioner, to return to the emergency department if symptoms worsen or persist or if there are any questions or concerns that arise at home. 05/13 16:01 Order name: Basic Metabolic Panel; Complete Time: 17:22 kb 05/13 16:01 Order name: CBC with Diff; Complete Time: 17:04 kb 05/13 16:01 Order name: Magnesium; Complete Time: 17:22 kb 05/13 16:01 Order name: NT PRO-BNP; Complete Time: 17:22 kb 05/13 16:01 Order name: Troponin HS; Complete Time: 17:22 kb 05/13 16:01 Order name: XRAY Chest (1 view); Complete Time: 17:04 kb 05/13 16:01 Order name: EKG; Complete Time: 16:02 kb 05/13 16:01 Order name: Cardiac monitoring; Complete Time: 16:40 kb 05/13 16:01 Order name: EKG - Nurse/Tech; Complete Time: 17:26 kb 05/13 16:01 Order name: IV Saline Lock; Complete Time: 16:40 kb 05/13 16:01 Order name: Labs collected and sent; Complete Time: 16:40 kb 05/13 16:01 Order name: O2 Per Protocol; Complete Time: 16:16 kb 05/13 16:01 Order name: O2 Sat Monitoring; Complete Time: 16:16 kb Administered Medications: 17:35 Drug: Potassium Chloride PO 20 mEq PO once Route: PO; tl4 17:42 Follow up: Response: Medication administered at discharge. tl4 Disposition: 05/14 09:02 Co-signature as Attending Physician, Dmitriy Rivers MD I reviewed the patient's care rn provided by the Advanced Practice Provider and agree with the diagnosis and treatment plan. Disposition Summary: 05/13/23 17:25 Discharge Ordered Notes: Location: Home kb Condition: Stable kb Diagnosis - Influenza due to identified novel influenza A virus kb Followup: kb - With: Emergency Department - When: As needed - Reason: Worsening of condition Followup: kb - With: Private Physician - When: 2 - 3 days - Reason: Recheck today's complaints, Continuance of care, Re-evaluation by your physician Discharge Instructions: - Discharge Summary Sheet kb - Influenza, Adult, [id number] kb Forms: - Medication Reconciliation Form kb - Thank You Letter kb - Antibiotic Education kb - Prescription Opioid Use kb - Patient Portal Instructions kb - Leadership Thank You Letter kb Signatures: Dispatcher [employer] Gwen Wolff, STOCK HOUSE WORKER-C STOCK HOUSE WORKER-Dmitriy Tolliver MD MD rn Prokisch, Amanda, RN RN ap3 LogMiguel ngo tl4
--- NOTE | 2023-05-13 17:25 | ER ---
Nurse's Notes [facility] Name: Porfirio Dumont Jr Age: 62 yrs Sex: Male : 1960 Arrival Date: 05/13/2023 Time: 15:39 Bed 12 Private MD: Diagnosis: Influenza due to identified novel influenza A virus Presentation: 05/13 15:45 Chief complaint: Patient states: he was diagnosed with the flu on the , but ap3 symptoms are not improving. patient complains of increased body aches, productive cough, sleepless nights and shortness of breath. Coronavirus screen: Client presents with at least one sign or symptom that may indicate coronavirus-19. Ebola Screen: No symptoms or risks identified at this time. Initial Sepsis Screen: Does the patient meet any 2 criteria? No. Patient's initial sepsis screen is negative. Does the patient have a suspected source of infection? Yes: Other: recent flu diagnosis. Risk Assessment: Do you want to hurt yourself or someone else? Patient reports no desire to harm self or others. Onset of symptoms was May 07, 2023. 15:45 Method Of Arrival: Ambulatory ap3 15:45 Acuity: SRINIVAS 3 ap3 Triage Assessment: 15:47 General: Appears ill, Behavior is calm, cooperative, appropriate for age. Pain: ap3 Complains of pain in generalized body aches. Cardiovascular: Patient's skin is warm and dry. Respiratory: Reports cough that is productive, Airway is patent Respiratory effort is even, unlabored, Respiratory pattern is regular, symmetrical, Onset: The symptoms/episode began/occurred gradually, the patient has mild shortness of breath. Historical: - Allergies: 15:47 NKA; ap3 - PMHx: 15:47 COPD; CVA; ap3 - Immunization history:: Client reports having NOT received the Covid vaccine. Flu vaccine is not up to date. - Social history:: Smoking status: Patient denies any tobacco usage or history of. Screenin:48 [facility] ED Fall Risk Assessment (Adult) History of falling in the last 3 months, ap3 including since admission No falls in past 3 months (0 pts). Abuse screen: Denies threats or abuse. Nutritional screening: No deficits noted. Tuberculosis screening: No symptoms or risk factors identified. Assessment: 16:40 General: Appears in no apparent distress. Behavior is calm, cooperative. Pain: tl4 Complains of pain in chest Pain does not radiate. Neuro: No deficits noted. Cardiovascular: Reports chest pain, Capillary refill < 3 seconds Patient's skin is warm and dry. Rhythm is sinus rhythm. Respiratory: Reports cough that is Airway is patent Respiratory effort is even, unlabored, Respiratory pattern is regular, Breath sounds are clear bilaterally. GI: No deficits noted. No signs and/or symptoms were reported involving the gastrointestinal system. : No deficits noted. No signs and/or symptoms were reported regarding the genitourinary system. EENT: No signs and/or symptoms were reported regarding the EENT system. Vital Signs: 15:45 BP 129 / 80; Pulse 65; Resp 17; Temp 98.1; Pulse Ox 100% ; Weight 63.5 kg; Height 5 ft. ap3 7 in. ; Pain 9/10; 16:45 BP 124 / 79; Pulse 72; Resp 16; Pulse Ox 98% on R/A; tl4 17:43 BP 133 / 80; Pulse 75; Resp 14; Pulse Ox 98% on R/A; tl4 15:45 Body Mass Index 21.93 (63.50 kg, 170.18 cm) ap3 15:45 Pain Scale: Adult ap3 Vitals: 17:43 Cardiac Rhythm Assessment Regular Sinus rhythm. tl4 [place] Coma Score: 17:43 Eye Response: spontaneous(4). Motor Response: obeys commands(6). Verbal Response: tl4 oriented(5). Total: 15. ED Course: 15:41 Patient arrived in ED. mg5 15:[address] FNP-C is [facility]. kb 15:46 Dmitriy Rivers MD is Attending Physician. kb 15:47 Triage completed. ap3 15:48 Patient maintains SpO2 saturation greater than 95% on room air. ap3 15:48 Arm band placed on right wrist. ap3 15:50 Miguel Barrett is Primary Nurse. tl4 16:40 Basic Metabolic Panel Sent. tl4 16:40 CBC with Diff Sent. tl4 16:40 Magnesium Sent. tl4 16:40 NT PRO-BNP Sent. tl4 16:40 Troponin HS Sent. tl4 16:42 No provider procedures requiring assistance completed. tl4 16:42 Inserted saline lock: 20 gauge in left antecubital area, using aseptic technique. Blood tl4 collected. 16:42 Patient has correct armband on for positive identification. Placed in gown. Bed in low tl4 position. Call light in reach. Side rails up X2. Adult w/ patient. Provided Education on: ed process. Client placed on continuous cardiac and pulse oximetry monitoring. NIBP monitoring applied. panel monitor on. Door closed. Noise minimized. Lights dimmed. Moved to private room. Warm blanket given. 16:45 XRAY Chest (1 view) In Process Unspecified. EDMS 17:43 IV discontinued, intact, bleeding controlled, No redness/swelling at site. Pressure tl4 dressing applied. Administered Medications: 17:35 Drug: Potassium Chloride PO 20 mEq PO once Route: PO; tl4 17:42 Follow up: Response: Medication administered at discharge. tl4 Medication: 16:42 VIS not applicable for this client. tl4 Outcome: 17:25 Discharge ordered by . eve 17:43 Discharged to home ambulatory, with family, tl4 17:43 Condition: stable 17:43 Discharge instructions given to patient, family, Instructed on discharge instructions, follow up and referral plans. medication usage, Demonstrated understanding of instructions, follow-up care, medications, 17:44 Patient left the ED. tl4 Signatures: Dispatcher [employer] EDMS Gwen Lane, PRATEEK TOM-Cynthia Neely RN RN Altagracia Mcleod mg5 LogMiguel rubin tl4
[2023-05-13 20:33] VITALS: TEMP 98.1
[2023-05-13 20:43] VITALS: BP 133/80; O2SAT 98
--- NOTE | 2023-05-14 16:27 | EKG ---
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
== END ==
LOC: ER 15:39
DX: J10.1 Influenza due to other identified influenza virus with other respiratory manifestations (principal); Z28.310 Unvaccinated for COVID-19
CPT/HCPCS: 36415; 71045; 80048; 83735; 83880; 84484; 85025; 93005

== ENCOUNTER 2024-06-10 14:33 | Observation (INO) | payer OTHER ==
--- OUTSIDE RECORDS SUMMARY | 2024-06-10 14:43 | XMS REPORT | Continuity of Care Document ---
Author Name Unknown Address [address] [facility] [address] [place] [address] [facility] thconnect Address [address] [facility]. 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 Name Role Phone Em Rose Primary Care Physicia n Doctor Unassigned, [place] Attending Clinician U CHERRIE Smiley Attending Clinician Unavailable Cherrie Winslow MD Attending Clinician [phone] KATELYN RIVERA Attending Clinician Unavailable KATELYN RIVERA Attending Clinician Unavailable MICHAEL JACKSON Attending Clinician Unavailable MICHAEL JACKSON Attending Clinician Unavailable Mohamud Madrid MD Attending Clinician [phone] MOHAMUD MADRID Attending Clinician UnavailHENRI Larose Attending Clinician Unavailable Ebedwin SCOREBOARD OPERATORHenri Attending Clinician [phone] Unknown, Attending Attending Clinician Unavailab DEX Robles Attending Clinician Unavailable Nicole Correa Attending Clinician Unavailab afia Rinaldi Attending Clinician Unavailable KD FITZPATRICK Attending Clinician Unavailable Peter Lind MD Attending Clinician [phone] PETER LIND Attending Clinician Unavail able PETER LIND Attending Clinician Unavail able Doctor Unassigned, [place] Attending Clinician U navailable Neurology Attending Clinician Unavailable STEPHEN KINSEY Attending Clinician Unavailable Stephen Shell Attending Clinician [phone] NATALIE Attending Clinician Unavailable BRADLY WILBURN Attending Clinician UnavailRANJAN Lopez Attending Clinician Unavail able ODETTE REED Attending Clinician Unavailab JAZMINE Montemayor Attending Clinician Unavailable DEX ESTRADA Admitting Clinician Unavailable Nimco Admitting Clinician Unavailable STEPHEN KINSEY Admitting Clinician Unavailable NATALIE Admitting Clinician Unavailable Payers Payer Name Policy Type Policy Number Effective Date Expirati on Date Source [facility] [id number] 2015 00:00:00 [facility] (MEDICAID REPLACEMENT - HMO) [id number] [facility] (MEDICAID HMO) [id number] 2021 00:00:00 Problems Condition Name Condition Details Condition Category Status Onset Date Resolution Date Last Treatment Date Treating Clinician Comments Source Precordial pain Precordial pain Disease Active 10-05 00:00: 00 [facility] Allergies, Adverse Reactions, Alerts Allergy Name Allergy Type Status Severity Reaction(s) Onset Date Inactive Date Treating Clinician Comments Source NO KNOWN ALLERGIE S Drug Class Active [facility] Social History Social Habit Start Date Stop Date Quantity Comments Source Sexual orientation U [facility] History of tobacco use Pipe Smoker [facility] Tobacco use and exposure 2022-09-23 00:00:00 2022-09-23 00:00:00 User of smokeless tobacco [facility] Tobacco Comment 2022-09-23 00:00:00 2022-09-23 00:00:00 Patient vapes [facility] History of Social function 2022-09-23 00:00:00 2022-09-23 00:00:00 [facility] Exposure to SARS-CoV-2 (event) 2022-08-23 00:00:00 2022-09-02 09:07:00 Not sure [facility] Sex assigned at 1960 00:00:00 1960 00:00:00 [facility] Smoking Status Start Date Stop Date Source Tobacco smoking consumption unknown [facility] Ex-smoker 2022-09-23 00:00:00 2022-09-23 00:00:00 [facility] Medications Ordered Medication Name Filled Medication Name Start Date Stop Date Current Medication? Ordering Clinician Indication Dosage Frequency Signature (SIG) Comments Components Source BREZTRI AEROSPHERE 160-9-4.8 mcg/actuati on HFAA 09-08 00:00: 00 Yes 2{puff} 2 Puffs. [facility] meloxicam 7.5 mg tablet 07-15 00:00: 00 08-15 04:59 :00 No [id number] 7.5mg Take 1 tablet by mouth in the morning for 30 days. [facility] ketorolac (TORADOL) injection 30 mg 07-13 18:45: 00 07-13 18:01 :00 No [id number] 105 30mg [facility] ([facility]BIC[facility] 15 mg tablet 07-13 00:00: 00 07-21 04:59 :00 No [id number] 105 15mg Take 1 tablet by mouth in the morning for 7 days. [facility] iopamidol (ISOVUE 370-500 mL) injection 100 mL 09-02 15:16: 00 09-02 15:17 :00 No [id number] 100mL 100 mL, Intravenou s, ONCE, 1 dose, On Thu09/02/22 at 1030, Routine [facility] traMADOL 50 mg tablet 10-14 00:00: 00 Yes [id number] 50mg Take 1 tablet by mouth every 8 (eight) hours as needed for Pain (scale 4-6). [facility] methocarbam ol (ROBAXIN) 500 mg tablet 10-14 00:00: 00 Yes [id number] 500mg Take 1 tablet by mouth 4 (four) times daily as needed for Pain (scale 4-6). [facility] traMADOL (ULTRAM) 50 mg tablet 08-23 00:00: 00 Yes [id number] 50mg Take 1 tablet by mouth every 6 (six) hours as needed for Pain (scale 7-10). [facility] Vital Signs Vital Name Observation Time Observation Value Comments S ource Systolic blood pressure 2023-10-06 18:58:00 122 mm[Hg] [facility] Diastolic blood pressure 2023-10-06 18:58:00 74 mm[Hg] [facility] Heart rate 2023-10-06 18:58:00 73 /min [facility] Respiratory rate 2023-10-06 18:58:00 20 /min [facility] Body height 2023-10-06 18:58:00 170.2 cm [facility] Body weight 2023-10-06 18:58:00 62.596 kg [facility] BMI 2023-10-06 18:58:00 21.61 kg/m2 [facility] Oxygen saturation in Arterial blood by Pulse oximetry 2023-10-06 18:58:00 99 /min [facility] Body temperature 2023-07-16 20:21:00 36.28 Evelyn [facility] Body height 2023-07-16 20:21:00 170.2 cm [facility] Body weight 2023-07-16 20:21:00 65.862 kg [facility] BMI 2023-07-16 20:21:00 22.74 [facility] pressure 2023-07-14 17:43:00 121 mm[Hg] [facility] Diastolic blood pressure 2023-07-14 17:43:00 77 mm[Hg] [facility] Heart rate 2023-07-14 17:43:00 67 /min [facility] Body temperature 2023-07-14 17:43:00 36.44 Evelyn [facility] Respiratory rate 2023-07-14 17:43:00 18 /min [facility] Body weight 2023-07-14 17:43:00 63.957 kg [facility] BMI 2023-07-14 17:43:00 22.08 kg/m2 [facility] Oxygen saturation in Arterial blood by Pulse oximetry 2023-07-14 17:43:00 98 /min [facility] Systolic blood pressure 2023-03-31 16:54:00 123 mm[Hg] [facility] Diastolic blood pressure 2023-03-31 16:54:00 72 mm[Hg] [facility] Heart rate 2023-03-31 16:54:00 71 /min [facility] Respiratory rate 2023-03-31 16:54:00 18 /min [facility] Body height 2023-03-31 16:54:00 170.2 cm [facility] weight 2023-03-31 16:54:00 62.596 kg [facility] BMI 2023-03-31 16:54:00 21.61 kg/m2 [facility] Oxygen saturation in Arterial blood by Pulse oximetry 2023-03-31 16:54:00 99 /min [facility] Systolic blood pressure 2022-09-23 14:49:00 118 mm[Hg] [facility] Diastolic blood pressure 2022-09-23 14:49:00 75 mm[Hg] [facility] Heart rate 2022-09-23 14:49:00 68 /min [facility] Respiratory rate 2022-09-23 14:49:00 20 /min [facility] Body height 2022-09-23 14:49:00 170.2 cm [facility] weight 2022-09-23 14:49:00 62.778 kg [facility] BMI 2022-09-23 14:49:00 21.68 kg/m2 [facility] Oxygen saturation in Arterial blood by Pulse oximetry 2022-09-23 14:49:00 100 /min [facility] Systolic blood pressure 2022-08-26 14:50:00 143 mm[Hg] [facility] Diastolic blood pressure 2022-08-26 14:50:00 75 mm[Hg] [facility] Heart rate 2022-08-26 14:50:00 78 /min [facility] Body height 2022-08-26 14:50:00 170.2 cm [facility] Body weight 2022-08-26 14:50:00 59.149 kg [facility] BMI 2022-08-26 14:50:00 20.42 kg/m2 [facility] Systolic blood pressure 2022-07-29 18:39:00 149 mm[Hg] [facility] Diastolic blood pressure 2022-07-29 18:39:00 96 mm[Hg] [facility] Heart rate 2022-07-29 18:39:00 75 /min [facility] Respiratory rate 2022-07-29 18:39:00 16 /min [facility] Oxygen saturation in Arterial blood by Pulse oximetry 2022-07-29 18:39:00 98 /min [facility] Body temperature 2022-07-29 16:44:00 36.28 Evelyn [facility] Body height 2022-07-29 16:44:00 170.2 cm [facility] weight 2022-07-29 16:44:00 58.968 kg [facility] BMI 2022-07-29 16:44:00 20.36 kg/m2 [facility] Procedures Procedure Date / Time Performed Performing Clinician Source REFERRAL- REQUEST/RESPONSE 2023-07-29 16:56:18 Doctor Unassigned, [place] [facility] REFERRAL- REQUEST/RESPONSE 2023-07-29 16:09:31 Doctor Unassigned, [place] [facility] REFERRAL- REQUEST/RESPONSE 2023-07-29 16:03:37 Doctor Unassigned, [place] [facility] XR ANKLE 3+ VW LEFT 2023-07-16 20:14:43 Panchbhavi, Vi nod [facility] CT ANGIOGRAM NECK 2022-09-02 15:27:40 Peter Lind [facility] CT ANGIOGRAM HEAD 2022-09-02 15:26:24 Peter Lind [facility] NOTICE OF PRIVACY PRACTICES 2022-09-02 14:05:30 Doctor Unassigned, [place] [facility] CONSENT/REFUSAL FOR DIAGNOSIS AND TREATMENT 2022-09-02 14:05:01 Doctor Unassigned, [place] [facility] ASSIGNMENT OF BENEFITS 2022-09-02 14:04:41 Docto r Unassigned, [place] [facility] ASSIGNMENT OF BENEFITS 2022-08-26 14:33:17 Docto r Unassigned, [place] [facility] CT HEAD WO CONTRAST 2022-07-29 17:29:00 Stephen Kinsey [facility] TROPONIN I 2022-07-29 17:13:00 Stephen Kinsey [facility] COMP. METABOLIC PANEL (80915) 2022-07-29 17:13:00 Stephen Kinsey [facility] CBC WITH DIFF 2022-07-29 17:13:00 Stephen Kinsey [facility] PROTHROMBIN TIME / INR 2022-07-29 17:13:00 Deysi Kinsey [facility] POCT GLUCOSE (AUTOMATED) 2022-07-29 16:44:00 Doctor Unassigned, [place] [facility] NOTICE OF PRIVACY PRACTICES 2022-07-29 16:39:09 Doctor Unassigned, [place] [facility] CONSENT/REFUSAL FOR DIAGNOSIS AND TREATMENT 2022-07-29 16:38:35 Doctor Unassigned, [place] [facility] Encounters Start Date/Time End Date/Time Encounter Type Admission Type Attending [facility] Facility Care Department Encounter ID Source 2021-10-03 01:05:06 Outpatient [facility] [id number] [facility] 2023-07-29 00:00:00 2024-06-04 02:24:14 Orders Only Doctor Unassigned, [place] Doctor Unassigned, [place] [facility] ([facility]) 1.2.840.114 350.1.13.10 4.2.7.2.686 [id number] [facility] 2023-07-29 00:00:00 2024-06-04 02:23:53 Orders Only Doctor Unassigned, [place] Doctor Unassigned, [place] [facility] ([facility]) 1.2.840.114 350.1.13.10 4.2.7.2.686 [id number] [facility] 2023-07-29 00:00:00 2024-06-04 02:23:47 Orders Only Doctor Unassigned, [place] Doctor Unassigned, [place] [facility] ([facility] 1.2.840.114 350.1.13.10 4.2.7.2.686 [id number] [facility] 2023-10-06 14:00:00 2023-10-06 14:35:56 Outpatient R CHERRIE WINSLOW [place] [id number] [facility] 2023-10-06 14:00:00 2023-10-06 14:35:[address] [facility] 1.2.840.114 350.1.13.10 4.2.7.2.686 [id number] [facility] 2023-08-27 15:00:00 2023-08-27 15:00:00 Outpatient KATELYN OROZCO BRIA [place] [id number] [facility] 2023-08-25 11:30:00 2023-08-25 11:30:00 Outpatient R CHERRIE WINSLOW [place] [id number] [facility] 2023-08-21 13:00:00 2023-08-21 13:00:00 Outpatient R MICHAEL JACKSON ASHLEY [place] [id number] [facility] 2023-07-16 14:55:10 2023-07-16 23:59:00 Hospital Encounter Mohamud Madrid [facility] 1..840.114 350.1.13.10 4.2.7.2.686 [id number] [facility] 2023-07-16 15:00:00 2023-07-16 15:35:36 Outpatient R MOHAMUD MADRID [place] [id number] [facility] 2023-07-16 15:00:00 2023-07-16 15:35:36 Office Visit Mohamud Madrid [facility] 1..840.114 350.1.13.10 4.2.7.2.686 [id number] [facility] 2023-07-14 12:40:00 2023-07-14 13:06:33 Outpatient R HENRI GANDHI [place] [id number] [facility] 2023-07-14 12:40:00 2023-07-14 13:06:33 Urgent Care Henri Gandhi Unknown, Attending [facility] 1..840.114 350.1.13.10 4.2.7.2.686 [id number] [facility] 2023-07-13 11:56:00 2023-07-13 19:00:00 Emergency X DEX ESTRADA [facility] [id number] [facility] 2023-07-07 11:34:00 2023-07-07 13:30:00 emergency [facility] [id number] 2023-07-07 11:34:00 2023-07-07 13:30:00 Emergency ER Nicole Correa [facility] [id number] [facility] 2023-07-07 00:00:00 2023-07-07 00:00:00 Outpatient Abdirahman_S [place] [id number] [facility] 2023-03-31 11:30:00 2023-03-31 11:30:00 [facility] 1..840.114 350.1.13.10 4.2.7.2.686 [id number] [facility] 2023-03-31 11:30:00 2023-03-31 11:11:13 Outpatient Sammi FITZPATRICK KD [place] [id number] [facility] 2023-03-26 11:00:00 2023-03-26 11:00:00 [facility] [id number] [facility] 2022-09-23 10:00:00 2022-09-23 10:18:02 [facility] 1..840.114 350.1.13.10 4.2.7.2.686 [id number] [facility] 2022-09-23 10:00:00 2022-09-23 10:18:02 Outpatient [facility] [id number] [facility] 2022-09-02 09:11:03 2022-09-02 23:59:00 Hospital Encounter Lelo Peter Bryce [facility] 1..840.114 350.1.13.10 4.2.7.2.686 [id number] [facility] 2022-09-02 09:08:03 2022-09-02 09:10:00 Outpatient PETER HDEZ HOWARD [place] [id number] [facility] 2022-09-02 09:08:03 2022-09-02 09:10:00 Hospital Encounter LeloPeter [facility] 1.2.840.114 350.1.13.10 4.2.7.2.686 [id number] [facility] 2022-08-26 10:00:00 2022-08-26 10:27:56 Outpatient PETER HDEZ HOWARD [place] [id number] [facility] 2022-08-26 10:00:00 2022-08-26 10:27:56 Office Visit Peter Lind [facility]?MARLENYNapoleon [facility] 1.2.840.114 350.1.13.10 4.2.7.2.686 [id number] [facility] 2022-08-26 00:00:00 2022-08-26 00:00:00 Orders Only Doctor Unassigned, [place] [facility] 1.2.840.114 350.1.13.10 4.2.7.2.686 [id number] [facility] 2022-07-30 00:00:00 2022-07-30 00:00:00 Letter (Out) Neurology [facility] 1.2.840.114 350.1.13.10 4.2.7.2.686 [id number] [facility] 2022-07-29 11:42:00 2022-07-29 13:42:00 Emergency X STEPHEN KINSEY [facility] [id number] [facility] 2022-07-29 11:42:00 2022-07-29 13:42:00 Emergency Stephen Kinsey [facility] 1.2.840.114 350.1.13.10 4.2.7.2.686 [id number] [facility] 2021-11-04 04:40:00 2021-11-04 04:40:00 Outpatient FERGUSON_JO HN [facility] [id number] [facility] 2021-08-31 19:38:00 2021-08-31 21:50:00 Emergency ER BRADLY WILBURN [facility] [id number] [facility] 2021-08-09 10:00:00 2021-08-09 10:00:00 Outpatient FERGUSON_JO HN [facility] [id number] [facility] 2021-08-09 10:00:00 2021-08-09 10:00:00 Outpatient FERGUSON_JO HN [facility] [id number] [facility] 2021-08-09 10:00:00 2021-08-09 10:00:00 Outpatient FERGUSON_JO HN [facility] [id number] [facility] 2021-07-10 11:42:00 2021-07-10 11:42:00 Outpatient FERGUSON_JO HN [facility] [id number] [facility] 2021-07-03 11:41:00 2021-07-03 14:20:00 Emergency TR RANJAN GALINDO [facility] [id number] [facility] 2021-06-02 11:58:00 2021-06-02 15:35:00 Emergency ER ODETTE REED [facility] [id number] [facility] 2003-02-23 06:36:00 2003-02-23 06:36:00 Outpatient JAZMINE OLIVA [facility] [id number] [facility] Results Test Description Test Time Test Comments Results Resul t Comments Source REFERRAL- REQUEST/RESPONSE 2023-07-20 0 16:56:18 Ordered by an unspecified provider. [facility] REFERRAL- REQUEST/RESPONSE 2023-07-20 0 16:09:31 Ordered by an unspecified provider. [facility] REFERRAL- REQUEST/RESPONSE 2023-07-20 0 16:03:37 Ordered by an unspecified provider. [facility] XR ANKLE 3+ VW LEFT 2023-06-20 8 20:26:44 EXAM: XR ANKLE 3+ VW LEFT HISTORY: pain COMPARISON: Left foot radiographs 07/13/2023 FINDINGS: A linear metallic density projects over the posterior lateral distal legsoft tissues. Mild ankle soft tissue swelling is noted. Mild soft tissueswelling is present about the ankle. No acute fracture or dislocation isseen. The ankle mortise is congruent. [facility] [id number] 18:04:07* Test Item Value Reference Range Interpretation Comme nts TROPONIN I (test code = 4488932220) 0.024 ng/mL <=0.034 ANNA (test code = [...] of biotin. Lab Interpretation (test code = 60711-0) Normal [facility]OL[facility] PAN[facility] (21155)2022-07-29 17:53:06* Test Item Value Reference Range Interpretation Comme nts NA (test code = 0725656824) 131 mmol/L 135-145 L K (test code = 1780447480) 3.5 mmol/L 3.5-5.0 CL (test code = 6180805818) 94 mmol/L 98-108 L CO2 TOTAL (test code = 7788443683) 26 mmol/L 23-31 AGAP (test code = 2681709807) 11 2-16 BUN (test code = 3718603269) 11 mg/dL 7-23 GLUCOSE (test code = 2421757874) 90 mg/dL 70-110 CREATININE (test code = 6954099816) 0.66 mg/dL 0.60-1.25 TOTAL BILI (test code = 2155942598) 0.6 mg/dL 0.1-1.1 CALCIUM (test code = 0416156971) 8.9 mg/dL 8.6-10.6 T PROTEIN (test code = 1916470558) 7.8 g/dL 6.3-8.2 ALBUMIN (test code = 0694346015) 4.6 g/dL 3.5-5.0 ALK PHOS (test code = 2681457052) 58 U/L 34-122 ALTv (test code = 1742-6) 15 U/L 5-50 AST(SGOT) (test code = 9480250621) 25 U/L 13-40 eGFR (test code = 2812827881) 123.5 mL/min/1.73m2 ANNA (test code = ANNA) [...] imaging tests). Lab Interpretation (test code = 74994-4) Abnormal [facility] / [id number] 17:41:42* Test Item Value Reference Range Interpretation Comme [facility] PROTIME PATIENT (test code = 5964-2) 12.3 See_Comment [Automated [employer]] The system which generated this result transmitted reference range: 12.0 - 14.7 Seconds. The reference range was not used to interpret this result as normal/abnormal. INR (test code = 6301-6) 0.9 Normal INR <1.1; Warfarin Therapeutic range 2.0 to 3.0 or 2.5 to 3.5, depending upon the indications. Lab Interpretation (test code = 74060-9) Normal [facility]SE (AUTOMATED)2022-07-29 16:52:01* Test Item Value Reference Range Interpretation Comme [facility] POCT GLU (test code = 8823592354) 129 mg/dL 70-110 H Lab Interpretation (test cod e = 15259-1) Abnormal [facility]"
--- NOTE | 2024-06-10 15:22 | RAD REPORT ---
EXAM: Chest Pa And Lat (2 Views) HISTORY: 63 years Male COUGH COMPARISON: 05/13/2023 FINDINGS: LUNGS/PLEURA: The lungs are clear. No pleural effusions or pneumothorax. No pulmonary edema. MEDIASTINUM: The mediastinal silhouette is within normal limits CARDIAC: The cardiac silhouette is within normal limits. UPPER ABDOMEN: No significant abnormality. BONES: No acute abnormality. Fusion hardware in the thoracic spine. LINES/TUBES/OTHER: N/A IMPRESSION: No evidence of acute cardiopulmonary disease.
[2024-06-10] MEDS ORDERED: ONDANSETRON 4 MG/2 ML VIAL ONE ×2 (16:51→17:31)
[2024-06-10] MEDS ORDERED: KETOROLAC 30 MG/ML INJ ONE (16:51)
[2024-06-10] MEDS ORDERED: NA CHLORIDE 0.9% 1,000 ML ONE ×2 (16:51→19:46)
[2024-06-10 16:56] LABS: Absolute Eosinophils 0.1 K/uL (0-0.5); Absolute Lymphocytes (CBC) 0.4 K/uL (0.7-4.9); Absolute Monocytes 0.4 K/uL (0.1-1.3); Absolute Neutrophil 2.6 K/uL (1.8-8.0); Basophils % 1.2 % (0-1.3); Eosinophils % 2.1 % (0-4.4); Hematocrit 41.2 % (39.6-49.0); Hemoglobin 13.6 g/dL (13.6-17.9); Lymphocytes % 12.3 % (15.3-44.8); MCH 29.3 pg (27.0-35.0); MCV 88.8 fL (80-100); MPV 6.3 fL (7.6-11.3); Monocytes % 11.2 % (3.3-12.3); Neutrophils % 73.2 % (41.7-73.7); Nucleated Red Blood Cells % 0.1 % (0-0); Platelets 293 thou/uL (152-406); RBC Red Blood Cell Count 4.64 M/uL (4.33-5.43); Red Cell Distribution Width 13.2 % (12.1-15.2)
[2024-06-10 17:09] LABS: Influenza A Ag Negative; Influenza B Ag Negative; SARS-CoV-2 Antigen Rapid Res Negative (Negative)
[2024-06-10 17:13] LABS: Albumin 3.4 g/dL (3.4-5.0); Albumin/Globulin Ratio 0.8 (1.1-1.8); Anion Gap 9.7 mEq/L (5.0-15.0); Bilirubin Total 0.4 mg/dL (0.2-1.0); Globulin 4.5 g/dL (2.3-3.5); Potassium 3.7 mEq/L (3.5-5.1); Protein, Total 7.9 g/dL (6.4-8.2)
[2024-06-10] MEDS ORDERED: MORPHINE 4 MG/ML SYR ONE (17:31)
[2024-06-10 17:46] LABS: Specific Gravity > 1.030 (1.005-1.030); Sqamous Epithelial <5 /HPF (None Seen); Urine Bacteria None Seen /HPF (<20); Urine Bilirubin NEGATIVE (Negative); Urine Blood 2+ (Negative); Urine Clarity Turbid (Clear); Urine Color Yellow (Yellow); Urine Culture Reflex Order NOT NEEDED; Urine Glucose TRACE (Negative); Urine Ketones NEGATIVE (Negative); Urine Microscopic Reflex YN ORDER UMIC; Urine Mucus 3+ /HPF (None Seen); Urine Nitrite NEGATIVE (Negative); Urine Protein TRACE (Negative); Urine Urobilinogen 3+ (Normal); Urine WBC <5 /HPF (<5); Urine pH 5.5 (5.0-7.0)
--- NOTE | 2024-06-10 17:57 | RAD REPORT ---
EXAMINATION: CT ABDOMEN AND PELVIS WITH CONTRAST CLINICAL INDICATION: Male, 63 years old.ABD PAIN TECHNIQUE: CT abdomen and pelvis was performed, after the administration of IV contrast, as per depar replaced by [facility] protocol. Axial, sagittal and coronal reconstructions were obtained. One or more of the following dose reduction techniques were used: Automated exposure control, adjustment of the mA and/o r kV according to patient size, and/or iterative reconstruction. Unless otherwise specified, incidental findings do not require dedicated imaging follow-up. [id number]. COMPARISON: No prior exam. FINDINGS: LOWER CHEST: Mild bronchial wall thickening and minimal nodularity in the lung bases.No significant p ericardial effusion. UPPER GI: No significant abnormality. LIVER: No significant focal abnormality. GALLBLADDER/BILE DUCTS: No biliary ductal dilatation.? PANCREAS: No mass, ductal dilation, or nia-pancreatic fluid. SPLEEN: Unremarkable. ADRENALS: No adrenal masses. KIDNEYS AND URETERS: No hydronephrosis.No suspicious renal mass. ABDOMINAL AORTA AND OTHER VESSELS: Mild atherosclerotic changes. PERITONEUM: No abnormal free fluid. No free air. LYMPH NODES: No pathologic lymphadenopathy. ABDOMINAL WALL: Unremarkable SMALL BOWEL/COLON: Small bowel has normal course and caliber. No colonic wall thickening or pericolon ic inflammatory changes.Normal appendix. URINARY BLADDER: Underdistended but grossly unremarkable. REPRODUCTIVE ORGANS: No pathologic process. MUSCULOSKELETAL: Remote left-sided rib fractures. ADDITIONAL FINDINGS: None. IMPRESSION: No acute or significant abnormalities seen in the abdomen or pelvis.
--- NOTE | 2024-06-10 18:29 | EDPHYS ---
Physician Documentation [facility] Name: Porfirio Dumont Jr Age: 63 yrs Sex: Male : 1960 Arrival Date: 06/10/2024 Time: 14:33 Bed 11 Private MD: ED Physician Demarcus Nagel HPI: 06/10 14:55 This 63 yrs old Black Male presents to ER via Ambulatory with complaints of Weakness, cp Abdominal Pain, Fever. 14:55 The patient presents to the emergency department with weakness of the entire body, cp generalized weakness. 14:55 Onset: The symptoms/episode began/occurred yesterday. Associated signs and symptoms: cp Pertinent positives: fever, abdominal pain, nausea/vomiting, Pertinent negatives: cough, chest pain, diarrhea. Patient's baseline: Neuro: alert and fully oriented, Motor: no deficits, Ambulation: walks without assistance, Speech: normal. 14:55 Severity of symptoms: in the emergency department the symptoms are unchanged despite cp home interventions. Historical: - Allergies: 14:46 NKA; ap3 - PMHx: 14:46 COPD; CVA; ap3 - Immunization history:: Client reports having NOT received the Covid vaccine. Flu vaccine is not up to date. - Infectious Disease History:: Denies. - Social history:: Smoking status: Patient denies any tobacco usage or history of. ROS: 15:00 Constitutional: Positive for fatigue, fever, cp 15:00 Eyes: Negative for injury, pain, redness, and discharge, cp 15:00 ENT: Negative for drainage from ear(s), ear pain, sore throat, difficulty swallowing, difficulty handling secretions, 15:00 Cardiovascular: Negative for chest pain, edema, palpitations, 15:00 Respiratory: Negative for cough, shortness of breath, wheezing, 15:00 Abdomen/GI: Positive for abdominal pain, nausea and vomiting, Negative for diarrhea, constipation, black/tarry stool, rectal bleeding, 15:00 Neuro: Positive for weakness, Negative for altered mental status, syncope, near syncope, 15:00 All other systems are negative, Exam: 15:05 Constitutional: The patient appears in no acute distress, alert, awake, cp non-diaphoretic, non-toxic, well developed, well nourished, 15:05 Head/Face: Normocephalic, atraumatic. cp 15:05 Eyes: Periorbital structures: appear normal, Pupils: equal, round, and reactive to light and accomodation, Extraocular movements: intact throughout, Conjunctiva: normal, no exudate, no injection, Sclera: no appreciated abnormality, Lids and lashes: appear normal, bilaterally, 15:05 ENT: External ear(s): are unremarkable, Nose: is normal, Mouth: Lips: moist, Oral mucosa: moist, Posterior pharynx: Airway: no evidence of obstruction, patent, 15:05 Chest/axilla: Inspection: normal, 15:05 Cardiovascular: Rate: normal, Rhythm: regular, Edema: is not appreciated, JVD: is not appreciated, 15:05 Respiratory: the patient does not display signs of respiratory distress, Respirations: normal, no use of accessory muscles, no retractions, labored breathing, is not present, Breath sounds: are clear throughout, no decreased breath sounds, no stridor, no wheezing, 15:05 Abdomen/GI: Inspection: abdomen appears normal, Bowel sounds: active, all quadrants, Palpation: soft, in all quadrants, mild abdominal tenderness, in all quadrants, rebound tenderness, is not appreciated, involuntary guarding, is not appreciated, 15:05 Back: CVA tenderness, is absent, 15:05 Neuro: Orientation: to person, place \T\ time. Mentation: able to follow commands, Motor: moves all fours, no focal deficits, Vital Signs: 14:45 BP 121 / 72; Pulse 94; Resp 18; Temp 99.6(O); Pulse Ox 95% ; Weight 63.5 kg; Height 5 ap3 ft. 7 in. ; Pain 10/10; 16:45 BP 124 / 78; Pulse 92; Resp 15; Pulse Ox 94% on R/A; hb 18:45 BP 122 / 72; Pulse 78; Resp 16; Pulse Ox 99% on R/A; hb 14:45 Body Mass Index 21.93 (63.50 kg, 170.18 cm) ap3 14:45 Pain Scale: Adult ap3 MDM: 16:27 Medical Screening Exam initiated bo 18:30 Data reviewed: vital signs, nurses notes, lab test result(s), radiologic studies, CT cp scan, I have discussed the patient's presentation/case with the attending Emergency Department Physician; and as a result, I will admit patient. 18:30 Management of patient was discussed with the following: Hospitalist: DR Parker will cp admit to hospitalist services after discussion. I considered the following discharge prescriptions or medication management in the emergency department Medications were administered in the Emergency Department. See MAR. Counseling: I had a detailed discussion with the patient and/or guardian regarding the historical points, exam findings, and any diagnostic results supporting the discharge/admit diagnosis, lab results, radiology results. 06/10 14:49 Order name: CBC with Diff; Complete Time: 17:18 06/10 17:18 Interpretation: Normal except: WBC 3.60; MPV 6.3; LYM% 12.3; LYMA 0.4. 06/10 14:49 Order name: CMP; Complete Time: 17:18 06/10 17:19 Interpretation: Normal except: NA 124; CL 92; AST 13; ALT 15; CA 8.4; GLOB 4.5; A/G 0.8. 06/10 14:49 Order name: Lipase; Complete Time: 17:18 06/10 14:49 Order name: Urinalysis w/ reflexes; Complete Time: 18:00 06/10 18:00 Interpretation: Normal except: UCLA Turbid; Urine SG > 1.030; UGLUC TRACE; UBLD 2+; cp UPROT TRACE; UUROB 3+; URBC 5-10; MUCUS 3+. 06/10 16:32 Order name: COVID-19 Ag + Flu A+B Ag; Complete Time: 17:18 EDMS 06/10 18:14 Order name: Magnesium 06/10 18:14 Order name: Troponin High Sensitivity 06/10 18:41 Order name: CBC with Automated Diff EDMS 06/10 18:41 Order name: CBC with Automated Diff EDMS 06/10 18:41 Order name: Comprehensive Metabolic Panel EDMS 06/10 18:41 Order name: Comprehensive Metabolic Panel EDFL 06/10 14:49 Order name: XRAY Chest Pa And Lat (2 Views); Complete Time: 17:18 06/10 16:27 Order name: CT Abd/Pelvis - IV Contrast Only; Complete Time: 18:00 06/10 18:16 Interpretation: Report reviewed. 06/10 14:49 Order name: IV Saline Lock; Complete Time: 17:08 06/10 14:49 Order name: Labs collected and sent; Complete Time: 17:08 cp 06/10 18:14 Order name: EKG - Nurse/Tech; Complete Time: 19:05 cp Administered Medications: 16:50 Drug: NS 0.9% IV 1000 ml IV at 1000 ml once; to be given as a bolus over 120 minutes hb Route: IV; Rate: 1000 ml; Site: left forearm; 22:03 Follow up: Response: No adverse reaction; IV Status: Completed infusion; IV Intake: me1 1000ml 16:50 Drug: Ondansetron IVP 4 mg IVP once; over 2 minutes Route: IVP; Site: left forearm; hb 17:52 Follow up: Response: No adverse reaction hb 16:50 Drug: Ketorolac IVP 10 mg 10 mg IVP once Route: IVP; Site: left forearm; hb 17:51 Follow up: Response: No adverse reaction hb 17:38 Drug: morphine IVP or IV 4 mg IVP once over 4 mins Route: IVP; Infused Over: 4 mins; hb Site: left forearm; 22:02 Follow up: Response: No adverse reaction; Pain is decreased me1 17:38 Drug: Ondansetron IVP 4 mg IVP once; over 2 minutes Route: IVP; Site: left forearm; hb 22:02 Follow up: Response: No adverse reaction; Nausea is decreased me1 Disposition Summary: 06/10/24 18:28 Hospitalization Ordered Notes: Hospitalization Status: Observation cp Provider: Kole Parker cp Condition: Stable cp Problem: new cp Symptoms: have improved cp Bed/Room Type: Standard Location: Telemetry/MedSurg (Inpatient)(06/10/24 21:46) Room Assignment: [facility](06/10/24 21:46) Diagnosis - Weakness cp - Hypo-osmolality and hyponatremia cp - Nausea with vomiting, unspecified cp Forms: - Medication Reconciliation Form cp - SBAR form cp - Leadership Thank You Letter cp Addendum: 06/13/2024 12:33 Co-signature as Attending Physician, Demarcus Nagel MD I agree with the assessment and c marion plan of care. Signatures: Dispatcher [employer] EDDemarcus Rogers MD MD cha Page, Corey, PA PA cp Baxter, Heather, RN RN hb Prokisch, Amanda, RN RN ap3 Iwona Barry Piper Louis RN me1 Corrections: (The following items were deleted from the chart) 06/10 16:31 14:50 SARS-COV-2 Antigen Rapid+I.LAB.BRZ ordered. EDMS EDMS 16:32 14:50 Influenza Screen (A \T\ B)+BA.LAB.BRZ ordered. EDMS EDMS 18:15 18:15 MAGNESIUM+C.LAB.BRZ ordered. EDMS EDMS 18:15 18:15 Troponin High Sensitivity+C.LAB.BRZ ordered. EDMS EDMS 19:21 18:28 Telemetry/MedSurg (observation) cp hb 19:21 18:28 cp hb 21:46 19:21 [facility] ER HOLD hb hw 21:46 19:21 ERHOLD- hb hw
--- NOTE | 2024-06-10 18:29 | ER ---
Nurse's Notes [facility] Name: Porfirio Dumont Jr Age: 63 yrs Sex: Male : 1960 Arrival Date: 06/10/2024 Time: 14:33 Bed 11 Private MD: Diagnosis: Weakness;Hypo-osmolality and hyponatremia;Nausea with vomiting, unspecified Presentation: 06/10 14:45 Chief complaint: Patient states: he has been having belly pain that started yesterday. ap3 patient complains of nausea, fever, weakness and fatigue. Coronavirus screen: Client presents with at least one sign or symptom that may indicate coronavirus-19. Ebola Screen: No symptoms or risks identified at this time. Initial Sepsis Screen: Does the patient meet any 2 criteria? HR > 90 bpm. Does the patient have a suspected source of infection? No. Patient's initial sepsis screen is negative. Risk Assessment: Do you want to hurt yourself or someone else? Patient reports no desire to harm self or others. Onset of symptoms was June 09, 2024. 14:45 Method Of Arrival: Ambulatory ap3 14:45 Acuity: SRINIVAS 3 ap3 Triage Assessment: 14:47 General: Appears ill, Behavior is cooperative, appropriate for age. Pain: Complains of ap3 pain in abdomen Pain currently is 10 out of 10 on a pain scale. Pain began 1 day ago. Neuro: Level of Consciousness is awake, alert, obeys commands, Oriented to person, place, time, situation, Speech is normal. Cardiovascular: Patient's skin is warm and dry. Respiratory: Airway is patent Respiratory effort is even, unlabored, Respiratory pattern is regular, symmetrical. Respiratory: Reports cough that is GI: Reports lower abdominal pain, upper abdominal pain, nausea, vomiting. Historical: - Allergies: 14:46 NKA; ap3 - PMHx: 14:46 COPD; CVA; ap3 - Immunization history:: Client reports having NOT received the Covid vaccine. Flu vaccine is not up to date. - Infectious Disease History:: Denies. - Social history:: Smoking status: Patient denies any tobacco usage or history of. Screenin:47 Abuse screen: Denies threats or abuse. Nutritional screening: No deficits noted. ap3 Tuberculosis screening: No symptoms or risk factors identified. 17:45 [facility] ED Fall Risk Assessment (Adult) History of falling in the last 3 months, hb including since admission No falls in past 3 months (0 pts) Confusion or Disorientation No (0 pts) Intoxicated or Sedated No (0 pts) Impaired Gait No (0 pts) Mobility Assist Device Used No (0 pt) Altered Elimination No (0 pt) Score/Fall Risk Level 0 - 2 = Low Risk Oriented to surroundings, Maintained a safe environment, Educated pt \T\ family on fall prevention, incl call for assistance when getting out of bed. Assessment: 17:00 General: Appears in no apparent distress. uncomfortable, Behavior is calm, cooperative. hb Pain: Pain currently is 9 out of 10 on a pain scale. Neuro: Level of Consciousness is awake, alert, obeys commands, Oriented to person, place, time, situation. Cardiovascular: Patient's skin is warm and dry. Respiratory: Respiratory effort is even, unlabored, Respiratory pattern is regular, symmetrical. GI: Reports lower abdominal pain, upper abdominal pain, nausea. : No signs and/or symptoms were reported regarding the genitourinary system. EENT: No signs and/or symptoms were reported regarding the EENT system. Derm: Skin is pink, warm \T\ dry. Musculoskeletal: No signs and/or symptoms reported regarding the musculoskeletal system. 18:00 Reassessment: Patient appears in no apparent distress at this time. Patient and/or hb family updated on plan of care and expected duration. Pain level reassessed. Patient is alert, oriented x 3, equal unlabored respirations, skin warm/dry/pink. 19:03 Reassessment: Patient appears in no apparent distress at this time. Patient and/or hb family updated on plan of care and expected duration. Pain level reassessed. Patient is alert, oriented x 3, equal unlabored respirations, skin warm/dry/pink. Vital Signs: 14:45 BP 121 / 72; Pulse 94; Resp 18; Temp 99.6(O); Pulse Ox 95% ; Weight 63.5 kg; Height 5 ap3 ft. 7 in. ; Pain 10/10; 16:45 BP 124 / 78; Pulse 92; Resp 15; Pulse Ox 94% on R/A; hb 18:45 BP 122 / 72; Pulse 78; Resp 16; Pulse Ox 99% on R/A; hb 14:45 Body Mass Index 21.93 (63.50 kg, 170.18 cm) ap3 14:45 Pain Scale: Adult ap3 ED Course: 14:35 Patient arrived in ED. mr 14:40 Demarcus Watson PA is PHCP. cp 14:40 Demarcus Nagel MD is Attending Physician. cp 14:46 Triage completed. ap3 14:48 Arm band placed on left wrist. ap3 15:20 XRAY Chest Pa And Lat (2 Views) In Process Unspecified. EDMS 16:29 Radiology exam delayed due to lab results not completed at this time. (BUN/Creatinine) jc4 IV insertion attempt and/or patient not having appropriate IV at this time. 16:44 Pricilla Ren, JOSE ALFREDO is Primary Nurse. hb 16:45 Inserted saline lock: 20 gauge in left forearm, using aseptic technique. ,using aseptic hb technique. by Tressa Blood collected. Flushed with 10 mL NS. 17:45 Patient has correct armband on for positive identification. Bed in low position. Call hb light in reach. Provided Education on: use of call light, tests, result times. 17:50 CT Abd/Pelvis - IV Contrast Only In Process Unspecified. EDMS 18:27 Kole Parker MD is Hospitalizing Provider. cp 19:21 No provider procedures requiring assistance completed. Patient admitted, IV remains in hb place. Administered Medications: 16:50 Drug: NS 0.9% IV 1000 ml IV at 1000 ml once; to be given as a bolus over 120 minutes hb Route: IV; Rate: 1000 ml; Site: left forearm; 22:03 Follow up: Response: No adverse reaction; IV Status: Completed infusion; IV Intake: me1 1000ml 16:50 Drug: Ondansetron IVP 4 mg IVP once; over 2 minutes Route: IVP; Site: left forearm; hb 17:52 Follow up: Response: No adverse reaction hb 16:50 Drug: Ketorolac IVP 10 mg 10 mg IVP once Route: IVP; Site: left forearm; hb 17:51 Follow up: Response: No adverse reaction hb 17:38 Drug: morphine IVP or IV 4 mg IVP once over 4 mins Route: IVP; Infused Over: 4 mins; hb Site: left forearm; 22:02 Follow up: Response: No adverse reaction; Pain is decreased me1 17:38 Drug: Ondansetron IVP 4 mg IVP once; over 2 minutes Route: IVP; Site: left forearm; hb 22:02 Follow up: Response: No adverse reaction; Nausea is decreased me1 Medication: 18:45 VIS not applicable for this client. hb Intake: 22:03 IV: 1000ml; Total: 1000ml. me1 Outcome: 18:28 Decision to Hospitalize by Provider. cp 19:21 Admitted to ER Hold. Please see [facility] for further documentation. hb 19:21 Condition: stable 19:21 Instructed on the need for admit, Demonstrated understanding of instructions, 22:04 Admitted to Med/surg accompanied by tech, via wheelchair, room 431, with chart, Report me1 called to faxed, receipt confirmed with Latoya 22:04 Condition: stable 22:04 Instructed on the need for admit, 22:47 Patient left the ED. me1 Signatures: Dispatcher [employer] EDMS Nadia Quintana, Reg Reg mr Demarcus Watson, JUAN PA cp Pricilla Ren RN RN Cynthia Lloyd RN RN ap3 Piper Louis RN RN me1 Paresh Sierra [email or web address] Corrections: (The following items were deleted from the chart) 17:28 17:28 Ketorolac IVP 10 mg 10 mg IVP in left antecubital hb hb
[2024-06-10] MEDS ORDERED: ONDANSETRON 4 MG/2 ML VIAL IV PRN (18:37)
[2024-06-10] MEDS ORDERED: MORPHINE 4 MG/ML SYR IV PRN (18:37)
--- NOTE | 2024-06-10 18:45 | P.HP ---
Certification for Inpatient Patient admitted to: Observation With expected LOS: <2 Midnights Practitioner: I am a practitioner with admitting privileges, knowledge of patient current condition, hospital course, and medical plan of care. Services: Services provided to patient in accordance with Admission requirements found in Title 42 Section 412.3 of the Code of Federal Regulations Patient History Date of Service: 06/10/24 Reason for admission: Abdominal pain pain nausea vomiting History of Present Illness: Patient is 63 years of age presented with nonspecific abdominal pain nausea vomiting worse over the past 3 days he has had intermittent abdominal pain for the past year and hyponatremic feeling very sleepy and tired has any diarrhea weight loss take any medications at home except an inhaler Allergies No Known Drug Allergies Allergy (Verified 04/08/14 16:34) Unknown No Known Allergie Allergy (Uncoded 06/26/17 14:26) Unknown No Known Allergies Allergy (Uncoded 10/24/17 15:32) Unknown Home Medications: Albuterol Sulfate [Ventolin Hfa] 2 puff PO Q6H 04/09/14 Albuterol Sulfate [Proair Hfa] 8.5 gm IH [id number] PRN #1 hfa.[id number].[id number] 04/10/14 Azithromycin [Zithromax] 500 mg PO DAILY #4 tablet 04/10/14 predniSONE [Deltasone*] 10 mg PO DAILY #20 tab 04/10/14 Fluticasone/Salmeterol [Advair 250/50 Diskus*] 1 puff IH BID #1 disk 04/11/14 - Past Medical/Surgical History Diabetic: No -: COPD -: Back surgery - Social History Smoking Status: Former smoker Alcohol use: Yes CD- Drugs: No Caffeine use: Yes Review of Systems 10-point ROS is otherwise unremarkable Gastrointestinal: Nausea, Vomiting, Abdominal Pain Physical Examination - Vital Signs Temperature: 99.6 F Blood Pressure: 121/72 Pulse: 94 Respirations: 18 Pulse Ox (%): 95 - Physical Exam General: Alert, Oriented x3 Neck: Supple Respiratory: Clear to auscultation bilaterally, Diminished Cardiovascular: No edema, Regular rate/rhythm Gastrointestinal: Normal bowel sounds, No rebound, No guarding (Minimal tenderness) Musculoskeletal: No clubbing, No swelling, No contractures - Studies Laboratory Data (last 24 hrs) 06/10/24 06/10/24 16:46 16:46 WBC 3.60 L Hgb 13.6 Hct 41.2 Plt Count 293 Sodium 124 L Potassium 3.7 BUN 11 Creatinine 0.92 Glucose 89 Total Bilirubin 0.4 AST 13 L ALT 15 L Alkaline Phosphatase 76 Lipase 22 Assessment and Plan - Problems (Diagnosis) (1) Abdominal pain Current Visit: Yes Status: Acute Plan: Patient is 63 years of age admitted with nonspecific generalized abdominal discomfort associated with nausea and vomiting patient is hyponatremic CT of the scan of the abdomen is negative lipase is normal vital signs are all stable plan to admit white count is also normal not sure what the etiology of his abdominal pain is outpatient GI evaluation trial of antireflux therapy also has hyponatremia most likely hypovolemic start on IV fluids Qualifiers: Abdominal location: generalized Qualified Code(s): R10.84 - Generalized abdominal pain - Advance Directives Does patient have a Living Will: No Does patient have a Durable POA for Healthcare: No
[2024-06-10] MEDS: NA CHLORIDE 0.9% 1,000 ML IV SCH (19:00)
[2024-06-10 19:32] VITALS: BMI 21.9
[2024-06-10 20:44] LABS: Magnesium 2.1 mg/dL (1.6-2.4); Troponin High Sensitivity 6.3 pg/mL (<58.9)
[2024-06-11 06:54] LABS: Absolute Eosinophils 0.1 K/uL (0-0.5); Absolute Lymphocytes (CBC) 0.5 K/uL (0.7-4.9); Absolute Monocytes 0.4 K/uL (0.1-1.3); Absolute Neutrophil 2.6 K/uL (1.8-8.0); Basophils % 1.2 % (0-1.3); Eosinophils % 1.4 % (0-4.4); Hemoglobin 11.7 g/dL (13.6-17.9); Lymphocytes % 14.7 % (15.3-44.8); MCH 29.8 pg (27.0-35.0); MCHC 33.3 g/dL (32.0-36.0); MCV 89.4 fL (80-100); MPV 6.2 fL (7.6-11.3); Neutrophils % 71.7 % (41.7-73.7); Nucleated Red Blood Cells % 0.1 % (0-0); Platelets 273 thou/uL (152-406); RBC Red Blood Cell Count 3.92 M/uL (4.33-5.43); Red Cell Distribution Width 13.6 % (12.1-15.2)
[2024-06-11 07:08] LABS: AST/SGOT 11 U/L (15-37); Albumin 2.7 g/dL (3.4-5.0); Albumin/Globulin Ratio 0.8 (1.1-1.8); Alkaline Phosphatase 58 U/L (45-117); Anion Gap 8.6 mEq/L (5.0-15.0); BUN Blood Urea Nitrogen 11 mg/dL (7-18); Bicarbonate 24 mEq/L (21-32); Bilirubin Total 0.3 mg/dL (0.2-1.0); Globulin 3.5 g/dL (2.3-3.5); Glomerular Filtration Rate 102 ml/min (=/>90); Glucose Level 88 mg/dL (74-106); Potassium 3.6 mEq/L (3.5-5.1); Protein, Total 6.2 g/dL (6.4-8.2); Sodium Level 127 mEq/L (136-145)
[2024-06-11 07:09] LABS: ALT/SGPT < 14 U/L (16-61)
[2024-06-11 11:09] VITALS: O2SAT 99
[2024-06-11] MEDS ORDERED: PNEUMOCOCCAL VACCINE 0.5 ML IMVAC ONE (12:00)
[2024-06-11] MEDS ORDERED: FLU (Fluarix Triv) TS24-25(6MOS UP)/PF 45 MCG/0.5 ML Syringe IM ONE (12:00)
[2024-06-11] MEDS: ACETAMINOPHEN 500 MG TAB PO ONE (12:02)
[2024-06-11 12:15] VITALS: BP 130/70
[2024-06-11 13:05] VITALS: TEMP 98.6
[2024-06-11] MEDS: ALBUTEROL 2.5 MG/3 ML NEB SOL NEB PRN (14:12)
== END 2024-06-11 14:21 | disposition home or self-care (01) ==
LOC: ER 14:33 → ERHOLD 18:37 → 4TH 22:06
PROVIDERS: ADMIT Internal Medicine Sleep Medicine; ATTEND Hospitalist
DX: R10.84 Generalized abdominal pain (principal); E87.1 Hypo-osmolality and hyponatremia; R11.2 Nausea with vomiting, unspecified; R53.1 Weakness; J44.9 Chronic obstructive pulmonary disease, unspecified; Z86.73 Personal history of transient ischemic attack (TIA), and cerebral infarction without residual deficits; Z11.52 Encounter for screening for COVID-19
CPT/HCPCS: 96361; 85025 ×2; 81001; 36415; 83735; 84484; 83690; 80053 ×2; 74177; 71046; 94640; 96375; 96374; 99285; 87428; Q9967; J7613; J2405 ×2; J7030 ×3; G0378

== ENCOUNTER 2024-12-16 09:32 | Emergency (ER) | payer MEDICAID ==
--- OUTSIDE RECORDS SUMMARY | 2024-12-16 09:37 | XMS REPORT | Continuity of Care Document ---
Author Name Unknown Address [address] [facility] [place] [address] [facility] Address [address] [facility] [place] [address] Care Team Providers Care Chefs Name Role Phone SHARPLESS Primary Care Physician RM Robledo Attending Clinician RM Robledo Attending Clinician UnavailLYNETTE Bella Attending Clinician Unavailable LYNETTE ZULETA Attending Clinician Unavailable Lynette Zuleta MD Attending Clinician [phone] Doctor Unassigned, [place] Attending Clinician U navailable CHERRIE WINSLOW Attending Clinician Unavailable Cherrie Winslow MD Attending Clinician [phone] KATELYN RIVERA Attending Clinician Unavailable KATELYN RIVERA Attending Clinician Unavailable MICHAEL JACKSON Attending Clinician Unavailable MICHAEL JACKSON Attending Clinician Unavailable Mohamud Madrid MD Attending Clinician [phone] MOHAMUD MADRID Attending Clinician UnavailHENRI Larose Attending Clinician Unavailable EbHenri Roth Attending Clinician [phone] Unknown, Attending Attending Clinician Unavailab DEX Robles Attending Clinician Unavailable Nicole Correa Attending Clinician Unavailab KD English Attending Clinician Unavailable Peter Lind MD Attending Clinician [phone] PETER LIND Attending Clinician Unavail able PETER LIND Attending Clinician Unavail able Doctor Unassigned, [place] Attending Clinician U navailable Neurology Attending Clinician Unavailable STEPHEN KINSEY Attending Clinician Unavailable Stephen Shell Attending Clinician [phone] NATALIE Attending Clinician Unavailable BRADLY WILBURN Attending Clinician UnavailRANJAN Lopez Attending Clinician Unavail able ODETTE REED Attending Clinician Unavailab JAZMINE Montemayor Attending Clinician Unavailable YLNETTE ZULETA Admitting Clinician Unavailable DEX ESTRADA Admitting Clinician Unavailable STEPHEN KINSEY Admitting Clinician Unavailable NATALIE Admitting Clinician Unavailable Payers Payer Name Policy Type Policy Number Effective Date Expirati on Date Source [facility] [id number] 2015 00:00:00 [facility] [id number] 00:00:00 [facility] (MEDICAID HMO) [id number] 2021 00:00:00 Problems Condition Name Condition Details Condition Category Status Onset Date Resolution Date Last Treatment Date Treating Clinician Comments Source Precordial pain Precordial pain Disease Active 10-05 00:00: 00 [facility] Intracrani al bleed Intracrani al bleed Disease Active 2014-04 00:00: 00 [facility] Allergies, Adverse Reactions, Alerts Allergy Name Allergy Type Status Severity Reaction(s) Onset Date Inactive Date Treating Clinician Comments Source NO KNOWN ALLERGIE S Drug Class Active [facility] NO KNOWN ALLERGIE S Allergy Active [facility] Social History Social Habit Start Date Stop Date Quantity Comments Source History of tobacco use Pipe Smoker [facility] Sexual orientation C [facility] Sex 2024-11-29 00:25:55 2024-11-29 00:25:55 Male (finding) [facility] Tobacco use and exposure 2022-09-23 00:00:00 2022-09-23 00:00:00 User of smokeless tobacco [facility] History of Social function 2022-09-23 00:00:00 2022-09-23 00:00:00 [facility] Exposure to SARS-CoV-2 (event) 2022-08-23 00:00:00 2022-09-02 09:07:00 Not sure [facility] Alcoholic beverage intake 2015-01-28 00:00:00 2015-01-28 00:00:00 Current drinker of alcohol (finding) [facility] Tobacco Comment 2015-01-28 00:00:00 2015-01-28 00:00:00 smokes about 1 pack per week per [facility] Alcohol Comment 2015-01-28 00:00:00 2015-01-28 00:00:00 drinks 3 beers per day per [facility] Sex assigned at 1960 00:00:00 1960 00:00:00 [facility] Smoking Status Start Date Stop Date Source Tobacco smoking consumption unknown [facility] Ex-smoker 2022-09-23 00:00:00 2022-09-23 00:00:00 [facility] Smokes tobacco daily 2015-01-28 00:00:00 [facility] Medications Ordered Medication Name Filled Medication Name Start Date Stop Date Current Medication? Ordering Clinician Indication Dosage Frequency Signature (SIG) Comments Components Source azithromyci n (ZITHROMAX) tablet 500 mg 06-13 17:30: 00 06-13 17:48 :00 No 500mg 500 mg, Oral, ONCE, 1 dose, On Thu06/13/24 at 1130, GERRY, Reason for Anti-Infec tive: Documented Infection, Documented Infection Site: Respirator y, Duration of Therapy: Once (ED) [facility] cefTRIAXone (ROCEPHIN) 1,000 mg in water for injection, sterile 10 mL IV Push 06-13 17:30: 00 06-13 17:48 :00 No 1000mg 1,000 mg, Intravenou s, ONCE, 1 dose, On Thu06/13/24 at 1130, 10 mL, Reason for Anti-Infec tive: Documented Infection, Documented Infection Site: Respirator y, Duration of Therapy: Once (ED) [facility] amoxicillin -pot clavulanate 875-125 mg per tablet 06-13 00:00: 00 Yes [id number] 1{tbl} Take 1 tablet by mouth every 12 (twelve) hours. [facility] doxycycline hyclate 100 mg capsule 06-13 00:00: 00 06-24 05:59 :00 No [id number] 100mg Take 1 capsule by mouth in the morning and 1 capsule in the evening. Do all this for 10 days. [facility] BREZTRI AEROSPHERE 160-9-4.8 mcg/actuati on HFAA 09-08 00:00: 00 Yes 2{puff} 2 Puffs. [facility] meloxicam 7.5 mg tablet 07-15 00:00: 00 08-15 04:59 :00 No [id number] 7.5mg Take 1 tablet by mouth in the morning for 30 days. [facility] ketorolac (TORADOL) injection 30 mg 07-13 18:45: 00 07-13 18:01 :00 No [id number] 105 30mg [facility] meloxicam (MOBIC) 15 mg tablet 07-13 00:00: 00 07-21 04:59 :00 No [id number] 105 15mg Take 1 tablet by mouth in the morning for 7 days. [facility] iopamidol (ISOVUE 370-500 mL) injection 100 mL 09-02 15:16: 00 09-02 15:17 :00 No [id number] 100mL 100 mL, Intravenou s, ONCE, 1 dose, On Thu09/02/22 at 1030, Routine [facility] traMADOL 50 mg tablet 10-14 00:00: 00 Yes [id number] 50mg Take 1 tablet by mouth every 8 (eight) hours as needed for Pain (scale 4-6). [facility] methocarbam ol (ROBAXIN) 500 mg tablet 10-14 00:00: 00 Yes [id number] 500mg Take 1 tablet by mouth 4 (four) times daily as needed for Pain (scale 4-6). [facility] traMADOL (ULTRAM) 50 mg tablet 08-23 00:00: 00 Yes [id number] 50mg Take 1 tablet by mouth every 6 (six) hours as needed for Pain (scale 7-10). [facility] Vital Signs Vital Name Observation Time Observation Value Comments S ource Systolic blood pressure 2024-06-13 19:00:00 128 mm[Hg] [facility] Diastolic blood pressure 2024-06-13 19:00:00 92 mm[Hg] [facility] Heart rate 2024-06-13 19:00:00 84 /min [facility] Body temperature 2024-06-13 19:00:00 37.67 Evelyn [facility] Respiratory rate 2024-06-13 19:00:00 17 /min [facility] Oxygen saturation in Arterial blood by Pulse oximetry 2024-06-13 19:00:00 91 /min [facility] Body height 2024-06-13 15:11:00 170.2 cm [facility] Body weight 2024-06-13 15:11:00 63.504 kg [facility] BMI 2024-06-13 15:11:00 21.93 kg/m2 [facility] Systolic blood pressure 2023-10-06 18:58:00 122 mm[Hg] [facility] Diastolic blood pressure 2023-10-06 18:58:00 74 mm[Hg] [facility] Heart rate 2023-10-06 18:58:00 73 /min [facility] 2023-10-06 18:58:00 20 /min [facility] Body height 2023-10-06 18:58:00 170.2 cm [facility] Body weight 2023-10-06 18:58:00 62.596 kg [facility] BMI 2023-10-06 18:58:00 21.61 kg/m2 [facility] Oxygen saturation in Arterial blood by Pulse oximetry 2023-10-06 18:58:00 99 /min [facility] Body temperature 2023-07-16 20:21:00 36.28 Evelyn [facility] Body height 2023-07-16 20:21:00 170.2 cm [facility] Body weight 2023-07-16 20:21:00 65.862 kg [facility] BMI 2023-07-16 20:21:00 22.74 kg/m2 [facility] Systolic blood pressure 2023-07-14 17:43:00 121 mm[Hg] [facility] Diastolic blood pressure 2023-07-14 17:43:00 77 mm[Hg] [facility] Heart rate 2023-07-14 17:43:00 67 /min Unive [facility] Body temperature 2023-07-14 17:43:00 36.44 Evelyn [facility] Respiratory rate 2023-07-14 17:43:00 18 /min [facility] Body weight 2023-07-14 17:43:00 63.957 kg [facility] BMI 2023-07-14 17:43:00 22.08 kg/m2 [facility] Oxygen saturation in Arterial blood by Pulse oximetry 2023-07-14 17:43:00 98 /min [facility] Systolic blood pressure 2023-03-31 16:54:00 123 mm[Hg] [facility] Diastolic blood pressure 2023-03-31 16:54:00 72 mm[Hg] [facility] Heart rate 2023-03-31 16:54:00 71 /min Unive [facility] Respiratory rate 2023-03-31 16:54:00 18 /min [facility] Body height 2023-03-31 16:54:00 170.2 cm [facility] Body weight 2023-03-31 16:54:00 62.596 kg [facility] BMI 2023-03-31 16:54:00 21.61 kg/m2 [facility] Oxygen saturation in Arterial blood by Pulse oximetry 2023-03-31 16:54:00 99 /min [facility] Systolic blood pressure 2022-09-23 14:49:00 118 mm[Hg] [facility] Diastolic blood pressure 2022-09-23 14:49:00 75 mm[Hg] [facility] Heart rate 2022-09-23 14:49:00 68 /min Unive [facility] Respiratory rate 2022-09-23 14:49:00 20 /min [facility] Body height 2022-09-23 14:49:00 170.2 cm [facility] Body weight 2022-09-23 14:49:00 62.778 kg [facility] BMI 2022-09-23 14:49:00 21.68 kg/m2 [facility] Oxygen saturation in Arterial blood by Pulse oximetry 2022-09-23 14:49:00 100 /min [facility] Systolic blood pressure 2022-08-26 14:50:00 143 mm[Hg] [facility] Diastolic blood pressure 2022-08-26 14:50:00 75 mm[Hg] [facility] Heart rate 2022-08-26 14:50:00 78 /min [facility] Body height 2022-08-26 14:50:00 170.2 cm [facility] Body weight 2022-08-26 14:50:00 59.149 kg [facility] BMI 2022-08-26 14:50:00 20.42 kg/m2 [facility] Systolic blood pressure 2022-07-29 18:39:00 149 mm[Hg] [facility] Diastolic blood pressure 2022-07-29 18:39:00 96 mm[Hg] [facility] Heart rate 2022-07-29 18:39:00 75 /min [facility] Respiratory rate 2022-07-29 18:39:00 16 /min [facility] Oxygen saturation in Arterial blood by Pulse oximetry 2022-07-29 18:39:00 98 /min [facility] Body temperature 2022-07-29 16:44:00 36.28 Evelyn [facility] Body height 2022-07-29 16:44:00 170.2 cm [facility] Body weight 2022-07-29 16:44:00 58.968 kg [facility] BMI 2022-07-29 16:44:00 20.36 kg/m2 [facility] Procedures Procedure Date / Time Performed Performing Clinician Source CT THORAX WO CONTRAST 2024-06-13 16:06:25 Cr Zuleta [facility] COMP. METABOLIC PANEL (96910) 2024-06-13 15:54:00 Lynette Zuleta [facility] CBC WITH DIFF 2024-06-13 15:54:00 Lynette Zuleta [facility] INFLUENZA A/B RSV COVID NAAT 2024-06-13 15:54:00 Lynette Zuleta [facility] REFERRAL- REQUEST/RESPONSE 2023-07-29 16:56:18 Doctor Unassigned, [place] [facility] REFERRAL- REQUEST/RESPONSE 2023-07-29 16:09:31 Doctor Unassigned, [place] [facility] REFERRAL- REQUEST/RESPONSE 2023-07-29 16:03:37 Doctor Unassigned, [place] [facility] XR ANKLE 3+ VW LEFT 2023-07-16 20:14:43 Panchbhavi, Vi nod [facility] CT ANGIOGRAM NECK 2022-09-02 15:27:40 Peter Lind [facility] CT ANGIOGRAM HEAD 2022-09-02 15:26:24 Peter Lind [facility] NOTICE OF PRIVACY PRACTICES 2022-09-02 14:05:30 Doctor Unassigned, [place] [facility] CONSENT/REFUSAL FOR DIAGNOSIS AND TREATMENT 2022-09-02 14:05:01 Doctor Unassigned, [place] [facility] ASSIGNMENT OF BENEFITS 2022-09-02 14:04:41 Docto r Unassigned, [place] [facility] ASSIGNMENT OF BENEFITS 2022-08-26 14:33:17 Docto r Unassigned, [place] [facility] CT HEAD WO CONTRAST 2022-07-29 17:29:00 Stephne Kinsey [facility] TROPONIN I 2022-07-29 17:13:00 Stephen Kinsey [facility] COMP. METABOLIC PANEL ([id number]) 2022-07-29 17:13:00 Stephen Kinsey [facility] CBC WITH DIFF 2022-07-29 17:13:00 Stephen Kinsey [facility] PROTHROMBIN TIME / INR 2022-07-29 17:13:00 Deysi Kinsey [facility] POCT GLUCOSE (AUTOMATED) 2022-07-29 16:44:00 Doctor Unassigned, [place] [facility] NOTICE OF PRIVACY PRACTICES 2022-07-29 16:39:09 Doctor Unassigned, [place] [facility] CONSENT/REFUSAL FOR DIAGNOSIS AND TREATMENT 2022-07-29 16:38:35 Doctor Unassigned, [place] [facility] Encounters Start Date/Time End Date/Time Encounter Type Admission Type Attending Clinicians Care Facility Care Department Encounter ID Source 2021-10-03 01:05:[address] [facility] [id number] [facility] 2024-06-21 11:30:00 2024-06-21 11:30:00 Outpatient RM BARCLAY SHIWAN [facility] [id number] [facility] 2024-06-13 09:17:00 2024-06-13 13:24:00 Emergency X LYNETTE ZULETA CLAUDY ZULETANELL [facility] ERT [id number] [facility] 2024-06-13 09:17:00 2024-06-13 13:24:00 Emergency Lynette Zuleta [facility] 1.2.840.114 350.1.13.10 4.2.7.2.686 [id number] [facility] 2023-07-29 00:00:00 2024-06-04 02:24:14 Orders Only Doctor Unassigned, [place] Doctor Unassigned, [place] [facility] 1.2.840.114 350.1.13.10 4.2.7.2.686 [id number] [facility] 2023-07-29 00:00:00 2024-06-04 02:23:53 Orders Only Doctor Unassigned, [place] Doctor Unassigned, [place] [facility] 1.2.840.114 350.1.13.10 4.2.7.2.686 [id number] [facility] 2023-07-29 00:00:00 2024-06-04 02:23:47 Orders Only Doctor Unassigned, [place] Doctor Unassigned, [place] [facility] 1.2.840.114 350.1.13.10 4.2.7.2.686 [id number] [facility] 2023-10-06 14:00:00 2023-10-06 14:35:56 Outpatient R CHERRIE WINSLOW [facility] [id number] [facility] 2023-10-06 14:00:00 2023-10-06 14:35:56 Office Visit Cherrie Winslow [facility] 1.2840.114 350.1.13.10 4.2.7.2.686 [id number] [facility] 2023-08-27 15:00:00 2023-08-27 15:00:00 Outpatient R KATELYN RIVERA BRIA [facility] [id number] [facility] 2023-08-25 11:30:00 2023-08-25 11:30:00 Outpatient R CHERRIE WINSLOW [facility] [id number] [facility] 2023-08-21 13:00:00 2023-08-21 13:00:00 Outpatient R MICHAEL JACKSON ASHLEY [facility] [id number] [facility] 2023-07-16 14:55:10 2023-07-16 23:59:00 Hospital Encounter KonstantinMohamud im [facility] 1..840.114 350.1.13.10 4.2.7.2.686 [id number] [facility] 2023-07-16 15:00:00 2023-07-16 15:35:36 Outpatient R MOHAMUD MADRID [facility] [id number] [facility] 2023-07-16 15:00:00 2023-07-16 15:35:36 Office Visit Christel Mohamud [facility] 1..840.114 350.1.13.10 4.2.7.2.686 [id number] [facility] 2023-07-14 12:40:00 2023-07-14 13:06:33 Outpatient R HENRI GANDHI [facility] [id number] [facility] 2023-07-14 12:40:00 2023-07-14 13:06:33 Urgent Care Henri Gandhi Unknown, Attending [facility] CHARLIE?MARLENYNapoleon [facility] 1..840.114 350.1.13.10 4.2.7.2.686 [id number] [facility] 2023-07-13 11:56:00 2023-07-13 19:00:00 Emergency X DEX ESTRADA [facility] ERT [id number] [facility] 2023-07-07 11:34:00 2023-07-07 13:30:00 emergency [facility] [id number] 2023-07-07 11:34:00 2023-07-07 13:30:00 Emergency ER Nicole Correa [facility] [id number] [facility] 2023-03-31 11:30:00 2023-03-31 11:30:00 [facility] 1.2.840.114 350.1.13.10 4.2.7.2.686 [id number] [facility] 2023-03-31 11:30:00 2023-03-31 11:11:13 Outpatient Sammi FITZPATRICK DK [facility] [id number] [facility] 2023-03-26 11:00:00 2023-03-26 11:00:00 Outpatient Sammi FITZPATRICK KD [facility] [id number] [facility] 2022-09-23 10:00:00 2022-09-23 10:18:02 [facility] 1..840.114 350.1.13.10 4.2.7.2.686 [id number] [facility] 2022-09-23 10:00:00 2022-09-23 10:18:02 Outpatient Sammi [facility] [id number] [facility] 2022-09-02 09:11:03 2022-09-02 23:59:00 Hospital Encounter Peter Lind [facility] 1..840.114 350.1.13.10 4.2.7.2.686 [id number] [facility] 2022-09-02 09:08:03 2022-09-02 09:10:00 Outpatient PETER HDEZOCHPETER Hedrick [facility] [id number] [facility] 2022-09-02 09:08:03 2022-09-02 09:10:00 Hospital Encounter Peter Lind [facility] 1.2840.114 350.1.13.10 4.2.7.2.686 [id number] [facility] 2022-08-26 10:00:00 2022-08-26 10:27:56 Outpatient Sammi LIND PETER GRIMALDO [facility] [id number] [facility] 2022-08-26 10:00:00 2022-08-26 10:27:56 Office Visit LeloPeter hedrick [facility] 1.2.840.114 350.1.13.10 4.2.7.2.686 [id number] [facility] 2022-08-26 00:00:00 2022-08-26 00:00:00 Orders Only Doctor Unassigned, [place] [facility] 1.840.114 350.1.13.10 4.2.7.2.686 [id number] [facility] 2022-07-30 00:00:00 2022-07-30 00:00:00 Letter (Out) Neurology [facility] 1.2.840.114 350.1.13.10 4.2.7.2.686 [id number] [facility] 2022-07-29 11:42:00 2022-07-29 13:42:00 Emergency X STEPHEN KINSEY [facility] ERT [id number] [facility] 2022-07-29 11:42:00 2022-07-29 13:42:00 Emergency Stephen Kinsey [facility] 1.2.840.114 350.1.13.10 4.2.7.2.686 [id number] [facility] 2021-08-31 19:38:00 2021-08-31 21:50:00 Emergency ER BRADLY WILBURN [facility] [id number] [facility] 2021-07-03 11:41:00 2021-07-03 14:20:00 Emergency TR RANJAN GALINDO [facility] [id number] [facility] 2021-06-02 11:58:00 2021-06-02 15:35:00 Emergency ER ODETTE REED [facility] [id number] [facility] 2003-02-23 06:36:00 2003-02-23 06:36:00 Outpatient MARC JAZMINE LAWRENCE [facility] [id number] [facility] Results Test Description Test Time Test Comments Results Result Comments Source CT Thorax wo contrast 2024-05-22 4 17:12:09 ORDERING PHYSICIAN: LYNETTE ZULETA. HISTORY: Pneumonia, complication suspected, xray done X ray done at outsidefacility TECHNIQUE: CT chest without intravenous contrast. ?CT was performedaccording to ALARA (As Low As Reasonably Achievable). COMPARISON: None. FINDINGS: Great Vessels: Normal caliber. Heart: Normal in size. ?No pericardial effusion. Lymphadenopathy: Increased number of mediastinal lymph nodes is noted. Thelargest lymph node is subcarinal, measuring 1.6 cm (image 46/3). The secondlymph node is located at the AP window, measuring 1 cm (image 36/3). Lungs: There are diffuse bilateral poorly marginated opacities,predominantl y centrilobular in distribution, and most having groundglassopacity. Some of the opacities are denser and near solid in appearance.There is no associated cavitation. The largest opacity measures 2.3 cm,located within the right upper lobe periphery (image 70/90) Airways: Bronchial wall thickening is present. There is no bronchiectasis. Pleura: No pneumothorax or pleural effusion. Other: The thyroid is normal. Visualized abdomen: Abdomen Osseous Structures: Cement is seen within T7 and T9. There is 30% loss ofvertebral body height at T8. Bilateral posterior paraspinal rods andpedicle screws extend from T7-T9, skipping over T8. There is old healedfracture deformity of the proximal sternal body. [facility] WITH [id number] 16:25:30* Test Item Value Reference Range Interpretation Comme nts WBC (test code = 6690-2) 3.37 4.20-10.70 L RBC (test code = 789-8) 4.37 4.26-5.52 HGB (test code = 718-7) 12.7 g/dL 12.2-16.4 HCT (test code = 4544-3) 37.9 % 38.4-49.3 L MCV (test code = 787-2) 86.7 fL 81.7-95.6 MCH (test code = 785-6) 29.1 pg 26.1-32.7 MCHC (test code = 786-4) 33.5 g/dL 31.2-35.0 RDW-SD (test code = 65771-9) 39.6 fL 38.5-51.6 RDW-CV (test code = 788-0) 12.4 % 12.1-15.4 PLT (test code = 777-3) 296 150-328 MPV (test code = 65401-9) 7.9 fL 9.8-13.0 L NRBC/100 WBC (test code = 7365495895) 0.0 0.0-10.0 NRBC x10^3 (test code = 8765210981) See_Comment [Automated ControlRad Systemsa ge] The system which generated this result transmitted reference range: 10*3/?L. The reference range was not used to interpret this result as normal/abnormal. GRAN MAT (NEUT) % (test code = 770-8) 70.9 % IMM GRAN % (test code = 4854727505) 0.30 % LYMPH % (test code = 736-9) 18.4 % MONO % (test code = 5905-5) 7.4 % EOS % (test code = 713-8) 2.1 % BASO % (test code = 706-2) 0.9 % GRAN MAT x10^3(ANC) (test code = 4337938035) 2.39 10*3/uL 1.99-6.95 IMM GRAN x10^3 (test code = 6507537855) 0.00-0.06 LYMPH x10^3 (test code = 731-0) 0.62 10*3/uL 1.09-3.23 L MONO x10^3 (test code = 742-7) 0.25 10*3/uL 0.36-1.02 L EOS x10^3 (test code = 711-2) 0.07 10*3/uL 0.06-0.53 BASO x10^3 (test code = 704-7) 0.03 10*3/uL 0.01-0.09 Lab Interpretation (test code = 21902-2) [facility]normal [facility][id number] 16:56:18 Ordered by an unspecified provider.[facility]/[id number] 16:09:31Ordered by an unspecified provider.[facility]/[id number] 16:03:37Ordered by an unspecified provider.[facility] AN[facility] 3+ VW LEFT 2023-07-16 20:26:44EXAM: XR ANKLE 3+ VW LEFT HISTORY: pain COMPARISON: Left foot radiographs 07/13/2023 FINDINGS: A linear metallic density projects over the posterior lateral distal legsoft tissues. Mild ankle soft tissue swelling is noted. Mild soft tissueswelling is present about the ankle. No acute fracture or dislocation isseen. The ankle mortise is congruent.[facility] [id number] 18:11:57* Test Item Value Reference Range Interpretation Comme nts WBC (test code = 6690-2) 3.29 See_Comment L [Automated messa ge] The system which generated this result transmitted reference range: 4.20 - 10.70 10*3/?L. The reference range was not used to interpret this result as normal/abnormal. RBC (test code = 789-8) 4.23 See_Comment L [Automated messa ge] The system which generated this result transmitted reference range: 4.26 - 5.52 10*6/?L. The reference range was not used to interpret this result as normal/abnormal. HGB (test code = 718-7) 12.5 g/dL 12.2-16.4 HCT (test code = 4544-3) 36.7 % 38.4-49.3 L MCV (test code = 787-2) 86.8 fL 81.7-95.6 MCH (test code = 785-6) 29.6 pg 26.1-32.7 MCHC (test code = 786-4) 34.1 g/dL 31.2-35.0 RDW-SD (test code = 31845-0) 42.6 fL 38.5-51.6 RDW-CV (test code = 788-0) 13.6 % 12.1-15.4 PLT (test code = 777-3) 348 See_Comment H [Automated messa ge] The system which generated this result transmitted reference range: 150 - 328 10*3/?L. The reference range was not used to interpret this result as normal/abnormal. MPV (test code = 35248-9) 8.0 fL 9.8-13.0 L NRBC/100 WBC (test code = 4996925643) 0.0 See_Comment [Automated me ssage] The system which generated this result transmitted reference range: 0.0 - 10.0 /100 WBCs. The reference range was not used to interpret this result as normal/abnormal. NRBC x10^3 (test code = 3729764839) See_Comment [Automated messa ge] The system which generated this result transmitted reference range: 10*3/?L. The reference range was not used to interpret this result as normal/abnormal. GRAN MAT (NEUT) % (test code = 770-8) 52.6 % IMM GRAN % (test code = 6583930618) 0.30 % LYMPH % (test code = 736-9) 29.8 % MONO % (test code = 5905-5) 11.2 % EOS % (test code = 713-8) 4.3 % BASO % (test code = 706-2) 1.8 % GRAN MAT x10^3(ANC) (test code = 6370412166) 1.73 10*3/uL 1.99-6.95 L IMM GRAN x10^3 (test code = 0462700219) 0.00-0.06 LYMPH x10^3 (test code = 731-0) 0.98 10*3/uL 1.09-3.23 L MONO x10^3 (test code = 742-7) 0.37 10*3/uL 0.36-1.02 EOS x10^3 (test code = 711-2) 0.14 10*3/uL 0.06-0.53 BASO x10^3 (test code = 704-7) 0.06 10*3/uL 0.01-0.09 BASO STIPPLING (test code = 703-9) Present A LG GRAN LYMPHS (test code = 0611620910) Rare Rare TOXIC CHANGES (test code = 803-7) Present A PLT ESTIMATE (test code = 9317-9) Increased Normal A Lab Interpretation (test code = 19887-3) Abnormal [facility] [id number] 18:04:07* Test Item Value Reference Range Interpretation Comme nts TROPONIN I (test code = 9581261444) 0.024 ng/mL <=0.034 ANNA (test code = [...] of biotin. Lab Interpretation (test code = 67864-4) Normal [facility]OLIC PANEL (89692)2022-07-29 17:53:06* Test Item Value Reference Range Interpretation Comme nts NA (test code = 9994165438) 131 mmol/L 135-145 L K (test code = 3858676230) 3.5 mmol/L 3.5-5.0 CL (test code = 7438934261) 94 mmol/L 98-108 L CO2 TOTAL (test code = 5377004308) 26 mmol/L 23-31 AGAP (test code = 6558947872) 11 2-16 BUN (test code = 8720493387) 11 mg/dL 7-23 GLUCOSE (test code = 1805271881) 90 mg/dL 70-110 CREATININE (test code = 0285641791) 0.66 mg/dL 0.60-1.25 TOTAL BILI (test code = 0812916256) 0.6 mg/dL 0.1-1.1 CALCIUM (test code = 2372987063) 8.9 mg/dL 8.6-10.6 T PROTEIN (test code = 4441674691) 7.8 g/dL 6.3-8.2 ALBUMIN (test code = 7834226755) 4.6 g/dL 3.5-5.0 ALK PHOS (test code = 9683845426) 58 U/L 34-122 ALTv (test code = 1742-6) 15 U/L 5-50 AST(SGOT) (test code = 8238373973) 25 U/L 13-40 eGFR (test code = 2299194488) 123.5 mL/min/1.73m2 ANNA (test code = ANNA) [...] imaging tests). Lab Interpretation (test code = 47972-6) Abnormal [facility] / [id number] 17:41:42* Test Item Value Reference Range Interpretation Comme [facility] PROTIME PATIENT (test code = 5964-2) 12.3 See_Comment [Automated [employer]] The system which generated this result transmitted reference range: 12.0 - 14.7 Seconds. The reference range was not used to interpret this result as normal/abnormal. INR (test code = 6301-6) 0.9 Normal INR <1.1; Warfarin Therapeutic range 2.0 to 3.0 or 2.5 to 3.5, depending upon the indications. Lab Interpretation (test code = 65246-8) Normal [facility] (AUTOMATED)2022-07-29 16:52:01* Test Item Value Reference Range Interpretation Comme [facility] POCT GLU (test code = 4244414658) 129 mg/dL 70-110 H Lab Interpretation (test cod e = 20770-5) Abnormal [facility] Notes Date/Time Note Provider Source 2024-06-13 13:23:26 Pt given printed and verbal discharge instructions regarding acute cough, hyponatremia, multifocal pneumonia, encouraged hydration, 2 Prescriptions sent. Discussed antibiotic therapy and to take until all completed unless adverse reaction occurs - if occurs, discontinue medication and follow up with pcp/seek medical attention Pt verbalized understanding of instructions, pt awake alert oriented, resp reg unlabored, skin w/d, color appropriate for race, moves all ext well,pt encouraged to follow up with pcp and pneumology Advised to seek medical attention for new/prolonged/worsening of symptoms, Symptoms improved. No adverse reaction to meds given in ER noted upon discharge PIV d'cd, dressing to site, catheter in tact. Awake, alert oriented, resp reg unlabored, skin w/d, pt leaving amb with steady gait, in no apparent distress, E Dobbins RN [facility] 2024-06-13 11:42:53 Patient attempted to urinate. Unable to urinate. [facility] 2024-06-13 10:39:23 Patient performed walk test. Oxygen saturation started at 94% on room air with heart rate of 76. During walk test patient dropped to 91% on room air with a heart rate of 86. [facility] 2024-06-13 09:35:00 Patient attempted to urinate. Unable to urinate. [facility] 2024-06-13 09:12:04 Pt arrived ambulaotry with states Thursday he was admitted to [facility] for bronchitis discharged Thursday, c/o increased coughing and fever 101.5F at home. Currently on abx. Hx stroke, COPD Motrin given 400mg 0830 today. E yDson RN [facility]"
[2024-12-16] MEDS ORDERED: IPRATROPIUM BROM 0.5MG/2.5ML ONE (10:05)
[2024-12-16] MEDS ORDERED: LEVALBUTEROL 1.25 MG/3 ML NEB ONE (10:05)
[2024-12-16] MEDS ORDERED: METHYLPREDNISOLONE 125 MG INJ ONE (10:05)
[2024-12-16] MEDS ORDERED: NA CHLORIDE 0.9% 500 ML ONE (10:06)
[2024-12-16 10:12] LABS: Absolute Lymphocytes (CBC) 1.5 K/uL (0.7-4.9); Hematocrit 36.1 % (39.6-49.0); Hemoglobin 11.9 g/dL (13.6-17.9); MCH 27.7 pg (27.0-35.0); MCHC 32.9 g/dL (32.0-36.0); MCV 84.3 fL (80-100); MPV 6.4 fL (7.6-11.3); Nucleated RBC Absolute Count 0.0 (0-0); Nucleated Red Blood Cells % 0.0 % (0-0); RBC Red Blood Cell Count 4.28 M/uL (4.33-5.43); White Blood Count 4.20 thou/uL (4.3-10.9)
[2024-12-16 10:25] LABS: Influenza A Ag Negative; Influenza B Ag Negative; SARS-CoV-2 Antigen Rapid Res Negative (Negative)
[2024-12-16 10:33] LABS: Anion Gap 7.8 mEq/L (5.0-15.0); BUN Blood Urea Nitrogen 15.0 mg/dL (7-18); Glucose Level 93.0 mg/dL (74-106); Potassium 3.8 mEq/L (3.5-5.1)
--- NOTE | 2024-12-16 11:09 | RAD REPORT ---
EXAMINATION: ONE VIEW CHEST XR CLINICAL INDICATION: Cough;SOB TECHNIQUE: Frontal chest projection is submitted. Examination is limited by patient positioning and t echnique. COMPARISON: 06/10/2024 FINDINGS: The lungs are well inflated and clear. The heart is upper limit of normal in size. No displaced fract ures identified. Mid thoracic hardware. IMPRESSION: No acute intrathoracic abnormalities.
--- NOTE | 2024-12-16 11:27 | ER ---
Nurse's Notes [facility] Name: Porfirio Dumont Jr Age: 64 yrs Sex: Male : 1960 Arrival Date: 12/16/2024 Time: 09:32 Bed 6 Private MD: Diagnosis: Cough;COPD/ Chronic obstructive pulmonary disease with (acute) exacerbation Presentation: 12/16 09:46 Chief complaint: Patient states: chest congestion and cough X 1 week. Coronavirus iw screen: At this time, the client does not indicate any symptoms associated with coronavirus-19. Ebola Screen: No symptoms or risks identified at this time. Initial Sepsis Screen: Does the patient meet any 2 criteria? No. Patient's initial sepsis screen is negative. Does the patient have a suspected source of infection? No. Patient's initial sepsis screen is negative. Risk Assessment: Do you want to hurt yourself or someone else? Patient reports no desire to harm self or others. Onset of symptoms was December 09, 2024. 09:46 Method Of Arrival: Ambulatory iw 09:46 Acuity: SRINIVAS 3 iw Triage Assessment: 09:55 General: Appears in no apparent distress. Behavior is calm, cooperative, appropriate nh2 for age, Reports fatigue for >3 days. Pain: Denies pain. EENT: No signs and/or symptoms were reported regarding the EENT system. Neuro: Level of Consciousness is awake, alert, obeys commands, Oriented to person, place, time, situation, Appropriate for age. Cardiovascular: Denies chest pain, Patient's skin is warm and dry. Respiratory: Reports shortness of breath on exertion cough that is non-productive, Airway is patent Trachea midline Respiratory effort is even, unlabored, Respiratory pattern is regular, symmetrical, tachypnea Onset: The symptoms/episode began/occurred 1 week ago, the patient has mild shortness of breath Parent/caregiver reports the patient having cough that is. 09:55 GI: No signs and/or symptoms were reported involving the gastrointestinal system. GI: nh2 Patient currently denies nausea, vomiting. : No signs and/or symptoms were reported regarding the genitourinary system. Derm: No signs and/or symptoms reported regarding the dermatologic system. Musculoskeletal: Range of motion: intact in all extremities. Historical: - Allergies: 09:49 NKA; iw - PMHx: 09:49 COPD; CVA; iw - Immunization history:: Adult Immunizations not up to date. - Infectious Disease History:: Denies. - Social history:: Smoking status: Patient denies any tobacco usage or history of. - Family history:: not pertinent. - Hospitalizations: : No recent hospitalization is reported. Screenin:20 [facility] ED Fall Risk Assessment (Adult) History of falling in the last 3 months, nh2 including since admission No falls in past 3 months (0 pts) Confusion or Disorientation No (0 pts) Intoxicated or Sedated No (0 pts) Impaired Gait No (0 pts) Mobility Assist Device Used No (0 pt) Altered Elimination No (0 pt) Score/Fall Risk Level 0 - 2 = Low Risk Oriented to surroundings, Maintained a safe environment, Educated pt \T\ family on fall prevention, incl call for assistance when getting out of bed, Assessed \T\ reinforced patient's understanding of fall precautions. Abuse screen: Denies threats or abuse. Denies injuries from another. Nutritional screening: No deficits noted. Tuberculosis screening: No symptoms or risk factors identified. Assessment: 09:55 Reassessment: see triage. nh2 10:15 Cardiovascular: Denies chest pain, Patient's skin is warm and dry. Rhythm is regular. nh2 Respiratory: Respiratory: Reports shortness of breath on exertion Airway is patent Trachea midline Respiratory effort is even, unlabored, Breath sounds are clear bilaterally. Parent/caregiver reports the patient having cough that is non-productive. 10:15 General: Appears in no apparent distress. Behavior is calm, cooperative, appropriate nh2 for age. Pain: Denies pain. Neuro: Level of Consciousness is awake, alert, obeys commands, Oriented to person, place, time, situation, Appropriate for age. Vital Signs: 09:46 BP 137 / 98; Pulse 89; Resp 18; Temp 98; Pulse Ox 100% on R/A; Weight 56.7 kg; Height 5 iw ft. 5 in. ; 10:19 BP 131 / 98; Pulse 68; Resp 14; Pulse Ox 100% on Nebulizer Mask; nh2 11:26 BP 128 / 80; Pulse 72; Resp 18; Pulse Ox 100% on R/A; dd2 09:46 Body Mass Index 20.80 (56.70 kg, 165.1 cm) iw ED Course: 09:35 Patient arrived in ED. al6 09:36 Dmitriy Rivers MD is Attending Physician. rn 09:49 Triage completed. iw 09:49 Arm band placed on. iw 09:53 Tonio Vaughn Jr, JOSE ALFREDO is Primary Nurse. nh2 09:55 Patient has correct armband on for positive identification. Call light in reach. Side nh2 rails up X 1. 09:55 Provided Education on: using call light for assistance and care plan. nh2 09:55 Inserted saline lock: 20 gauge in right antecubital area, using aseptic technique. nh2 Blood collected. Flushed with 10 mL NS. 10:16 COVID-19 Ag + Flu A+B Ag Sent. nh2 10:16 Basic Metabolic Panel Sent. nh2 10:52 XRAY Chest (1 view) In Process Unspecified. EDMS 11:36 No provider procedures requiring assistance completed. IV discontinued, intact, dd2 bleeding controlled, No redness/swelling at site. Pressure dressing applied. Administered Medications: 10:16 Drug: MethylPrednisoLONE IVP 125 mg IVP once Route: IVP; Site: right antecubital; nh2 10:50 Follow up: Response: No adverse reaction dd2 10:16 Drug: Levalbuterol Inhalation 1.25 mg Inhalation once Route: Inhalation; nh2 11:00 Follow up: Response: No adverse reaction dd2 10:16 Drug: Ipratropium Inhalation Aerosol 0.5 mg Inhalation once Route: Inhalation; nh2 11:00 Follow up: Response: No adverse reaction dd2 10:16 Drug: NS 0.9% IV 500 ml 500 ml IV at 1 bolus once; to be given as a bolus over 30 nh2 minutes Volume: 500 ml; Route: IV; Rate: 1 bolus; Site: right antecubital; 10:50 Follow up: IV Status: Completed infusion dd2 11:35 Drug: LevOfloxacin PO 500 mg PO once Route: PO; dd2 11:36 Follow up: Response: Medication administered at discharge. dd2 Medication: 11:37 VIS not applicable for this client. dd2 Outcome: 11:27 Discharge ordered by . rn 11:36 Discharged to home ambulatory, dd2 11:36 Condition: stable 11:36 Discharge instructions given to patient, Instructed on discharge instructions, follow up and referral plans. medication usage, Demonstrated understanding of instructions, follow-up care, medications, Prescriptions given X 2, 11:37 Patient left the ED. dd2 Signatures: Dispatcher [employer] EDSandra Duboisne, JOSE ALFREDO RN iw Dmitriy Rivers MD MD rn DAVIS, DIANA, RN RN dd2 Tonio Vaughn Jr, RN RN nh2 Amanda Pleitez al6 Corrections: (The following items were deleted from the chart) 09:50 09:46 Acuity: SRINIVAS 4 [facility] 10:24 09:55 Respiratory: Reports shortness of breath on exertion cough that is nh2 non-productive, Airway is patent Trachea midline Respiratory effort is even, unlabored, Respiratory pattern is regular, symmetrical, tachypnea Onset: The symptoms/episode began/occurred at an unknown time. the patient has mild shortness of breath Parent/caregiver reports the patient having cough that is nh2
--- NOTE | 2024-12-16 11:27 | EDPHYS ---
Physician Documentation [facility] Name: Porfirio Dumont Jr Age: 64 yrs Sex: Male : 1960 Arrival Date: 12/16/2024 Time: 09:32 Bed 6 Private MD: ED Physician Dmitriy Rivers HPI: 12/16 09:51 This 64 yrs old Black Male presents to ER via Ambulatory with complaints of Breathing rn Difficulty. 09:51 Patient reports shortness of breath, onset yesterday, has history of COPD and recurrent rn pneumonia. Spouse reports sweating and diaphoresis overnight, cough, congestion and shortness of breath. Has history of stroke with speech problems.. Historical: - Allergies: 09:49 NKA; iw - PMHx: 09:49 COPD; CVA; iw - Immunization history:: Adult Immunizations not up to date. - Infectious Disease History:: Denies. - Social history:: Smoking status: Patient denies any tobacco usage or history of. - Family history:: not pertinent. - Hospitalizations: : No recent hospitalization is reported. ROS: 09:51 Constitutional: Positive for fever and chills Cardiovascular: Negative for chest pain, rn palpitations, and edema, Respiratory: Positive for shortness of breath and cough Abdomen/GI: Negative for abdominal pain, nausea, vomiting, diarrhea, and constipation, MS/Extremity: Negative for injury and deformity, Neuro: Positive for generalized weakness and malaise Exam: 09:51 Constitutional: This is a well developed, well nourished patient who is awake, alert, rn and in no acute distress. Cardiovascular: Regular rate and rhythm. No pulse deficits. Respiratory: Faint wheezing noted bilaterally. No increased work of breathing, no retractions or nasal flaring. Neuro: Awake and alert, GCS 15 Vital Signs: 09:46 BP 137 / 98; Pulse 89; Resp 18; Temp 98; Pulse Ox 100% on R/A; Weight 56.7 kg; Height 5 iw ft. 5 in. ; 10:19 BP 131 / 98; Pulse 68; Resp 14; Pulse Ox 100% on Nebulizer Mask; nh2 11:26 BP 128 / 80; Pulse 72; Resp 18; Pulse Ox 100% on R/A; dd2 09:46 Body Mass Index 20.80 (56.70 kg, 165.1 cm) iw MDM: 09:36 Medical Screening Exam initiated rn 11:25 Differential diagnosis: Chronic Obstructive Pulmonary Disease pneumonia, Pneumothorax rn pulmonary edema. Data reviewed: vital signs, nurses notes, lab test result(s), radiologic studies, plain films, and as a result, I will discharge patient. Independent interpretation of the following test(s) in the Emergency Department X-Ray: My interpretation is Chest x-ray images negative for pneumonia per my interpretation. Care significantly affected by the following chronic conditions: Chronic Obstructive Pulmonary Disease. Counseling: I had a detailed discussion with the patient and/or guardian regarding the historical points, exam findings, and any diagnostic results supporting the discharge/admit diagnosis, lab results, radiology results, the need for outpatient follow up, to return to the emergency department if symptoms worsen or persist or if there are any questions or concerns that arise at home. Response to treatment: the patient's symptoms have markedly improved after treatment, and as a result, I will discharge patient. Special discussion: I discussed with the patient/guardian in detail that at this point there is no indication for admission to the hospital. It is understood, however, that if the symptoms persist or worsen the patient needs to return immediately for re-evaluation. Based on the history and exam findings, there is no indication for further emergent testing or inpatient evaluation. I discussed with the patient/guardian the need to see the primary care provider for further evaluation of the symptoms. ED course: No evidence of pneumonia. Will discharge home with antibiotics and steroids for COPD exacerbation and possibly early infection. Patient prone to pneumonia given history of CVA and swallowing problems.. 12/16 09:49 Order name: CBC with Diff; Complete Time: 10: rn 12/16 09:49 Order name: Basic Metabolic Panel; Complete Time: 10: rn 12/16 09:49 Order name: COVID-19 Ag + Flu A+B Ag; Complete Time: 10: rn 12/16 09:49 Order name: XRAY Chest (1 view); Complete Time: 11:20 rn 12/16 09:49 Order name: IV Start; Complete Time: 10: rn 12/16 09:50 Order name: Cardiac monitoring; Complete Time: 10: rn 12/16 09:50 Order name: O2 Sat Monitoring; Complete Time: 10:27 rn Administered Medications: 10:16 Drug: MethylPrednisoLONE IVP 125 mg IVP once Route: IVP; Site: right antecubital; nh2 10:50 Follow up: Response: No adverse reaction dd2 10:16 Drug: Levalbuterol Inhalation 1.25 mg Inhalation once Route: Inhalation; nh2 11:00 Follow up: Response: No adverse reaction dd2 10:16 Drug: Ipratropium Inhalation Aerosol 0.5 mg Inhalation once Route: Inhalation; nh2 11:00 Follow up: Response: No adverse reaction dd2 10:16 Drug: NS 0.9% IV 500 ml 500 ml IV at 1 bolus once; to be given as a bolus over 30 nh2 minutes Volume: 500 ml; Route: IV; Rate: 1 bolus; Site: right antecubital; 10:50 Follow up: IV Status: Completed infusion dd2 11:35 Drug: LevOfloxacin PO 500 mg PO once Route: PO; dd2 11:36 Follow up: Response: Medication administered at discharge. dd2 Disposition Summary: 12/16/24 11:27 Discharge Ordered Notes: Location: Home rn Problem: new rn Symptoms: have improved rn Condition: Stable rn Diagnosis - Cough rn - COPD/ Chronic obstructive pulmonary disease with (acute) exacerbation rn Followup: rn - With: Private Physician - When: As needed - Reason: Recheck today's complaints, Re-evaluation by your physician Discharge Instructions: - Discharge Summary Sheet rn - Chronic Obstructive Pulmonary Disease rn - Cough, Adult rn Forms: - Medication Reconciliation Form rn - Antibiotic rn training - Prescription Opioid Use rn - Patient Portal Instructions rn - Leadership Thank You Letter rn Prescriptions: - Prednisone 20 mg Oral Tablet - take 3 tablets ORAL route once daily for 5 days; 15 tablet; Refills: 0, Product rn Selection Permitted - levofloxacin 500 mg Oral tablet - take 1 tablet ORAL route once daily for 7 days; 7 tablet; Refills: 0, Product rn Selection Permitted Signatures: Dispatcher [employer] EDLaurel Dubois RN RN iw Dmitriy Rivers MD MD rn DAVIS, DIANA, RN RN dd2 Tonio Vaughn Jr RN RN nh2 Corrections: (The following items were deleted from the chart) 09:50 09:50 CBC+H.LAB.BRZ ordered. EDMS EDMS 09:50 09:50 BASIC METABOLIC PANEL+C.LAB.BRZ ordered. EDMS EDMS 09:50 09:50 COVID-19 Ag + Flu A+B Ag+I.LAB.BRZ ordered. EDMS EDMS
[2024-12-16] MEDS ORDERED: levoFLOXacin 250 MG TAB ONE (11:30)
[2024-12-16 12:05] VITALS: BP 128/80; TEMP 98; O2SAT 100
== END 2024-12-16 11:37 | disposition home or self-care (01) ==
LOC: ER 09:32
DX: J44.1 Chronic obstructive pulmonary disease with (acute) exacerbation (principal); Z11.52 Encounter for screening for COVID-19
CPT/HCPCS: 96361; 85025; 80048; 36415; 71045; 96374; 99285; 87428; J7614; J7644; J2919; J7040